=== PATIENT | male | born 1965 | race Caucasian/White ===

== ENCOUNTER 2016-08-16 14:27 | Emergency (ER) | payer OTHER ==
[~2016-08-16] VITALS: Ht 182.9 cm; Wt 86.0 kg
[~2016-08-16 14:27] MED LIST: IBUP-1050 PO; NAPR1CAP12 PO; TRAM-10 PO
[2016-08-16 14:47] VITALS: TEMP 37.1; Ht 182.9 cm; Wt 86.0 kg
[2016-08-16] MEDS ORDERED: ONDANSETRON INJ 2 MG/ML 2 ML VIAL IV STA (16:55)
[2016-08-16] MEDS ORDERED: SODIUM CHLORIDE 0.9% 1000ML 1,000 ML IV STA (16:55)
[2016-08-16] MEDS ORDERED: MoRPHine SULFATE 4 MG/ML 1 ML CARP\\VIAL IV STA (16:55)
[2016-08-16 17:12] LABS: BASO % 0.1 %; BASO ABS # 0.01 K/uL (0-0.2); COMPLETE YES; EOS % 2.2 %; HEMATOCRIT 47.5 % (42-52); IG% 0.1 %; LYMPH % 25.4 %; LYMPH ABS # 2.15 K/uL (1.2-3.4); MEAN CELL VOLUME 87.8 fL (80-100); MEAN CORPUSCULAR HGB CONC 36.4 g/dl (32-36); MEAN PLATELET VOLUME 9.8 fL (7.4-10.4); MONO % 5.7 %; NEUT % 66.5 %; PLATELET COUNT 234 K/uL (130-400); RED BLOOD COUNT 5.41 M/uL (4.7-6.1); WHITE BLOOD COUNT 8.48 K/uL (4.8-10.8)
[2016-08-16 17:25] LABS: URINE APPEARANCE CLEAR (CLEAR); URINE BILIRUBIN NEG (NEG); URINE COLOR DK YELLOW; URINE NITRITE NEG (NEG); URINE PH 5.5 (4.5-7.5); URINE SPECIFIC GRAVITY 1.029 (1.000-1.030); UROBILINOGEN NEG (NEG)
[2016-08-16 17:36] LABS: MANUAL MICROSCOPIC REQUIRED? NO; REVIEW REQ? NO
--- NOTE | 2016-08-16 17:44 | DIAGNOSTIC IMAGING REPORT ---
ABDOMEN AND PELVIS CT WITHOUT CONTRAST CT DOSE: 1114.30 mGy.cm HISTORY: Flank pain EVALUATE FLANK PAIN/HEMATURIA TECHNIQUE: Multiaxial CT images of the abdomen and pelvis were performed without the use of intravenous and oral contrast according to the standard department stone protocol. COMPARISON STUDY: 02/03/2016 FINDINGS: Lung bases are clear. Liver spleen and pancreas are unremarkable. The kidneys are demonstrate several punctate renal calcifications bilaterally. There is no evidence for renal hydronephrosis. Ureters are normal in course and caliber. There is no evidence for an obstructing urinary tract calculus. Bladder is midline. There are no contained calcifications. Prostate is unremarkable. Several central prostatic calcifications are present. No evidence for abscess collection or obstructive change. The appendix is normal. IMPRESSION: 1. Several punctate nonobstructing renal calcifications. 2. No evidence for an obstructing urinary tract calculus. 3. Study is otherwise normal. Electronically signed by: Mikhail Winter M.D. 08/16/2016 5:43 PM Dictated Date/Time: 08/16/2016 5:41 PM
[2016-08-16 17:56] LABS: BUN/CREATININE RATIO 13.8 (10-20); CREATININE 0.92 mg/dl (0.60-1.40); POTASSIUM 4.1 mmol/L (3.5-5.1)
[2016-08-16 18:23] VITALS: BP 129/83; PULSE 77; O2SAT 98
--- NOTE | 2016-08-17 02:04 | EMERGENCY ROOM VISIT NOTE ---
ED Visit Note First contact with patient: 16:37 Chief Complaint: "Kidney pain." History of Present Illness: Mr. Marinelli is a 51 year-old white male who ambulates into the ED complaining of bilateral flank pain with prominence on the left. Historically patient reports history of multiple kidney stones. Patient reports a gradual onset of bilateral flank pain that started 3 days ago. He reports initially started on the left but is gradually moved also to the left. He describes the pain as a sharp pain. He rates his discomfort 9/ 10. Pain is radiating around the abdomen into the bilateral lower quadrants. Worsens with palpation of the abdomen. He has not identified any alleviating factors related to the pain. He reports he's taken multiple [id number] medications without relief including ibuprofen, Aleve and Tylenol. Associated with his pain he reports she's been having night sweats and chills, vomiting and mild burning on urination. Patient denies skin eruptions, skin color changes, upper respiratory tract symptoms, shortness of breath, chest pain, nausea, vomiting, diarrhea, constipation, rectal bleeding, black/tarry stools, hematuria, bowel and bladder dysfunction, rectal/genital paresthesias, lower extremity weakness/numbness/ tingling. Review of Systems: As noted above in history of present illness. All body systems were reviewed and found to be negative as noted above. Past Medical History: As previously noted. Current Medications: Ibuprofen, naproxen. Allergies to Medications: Patient denies. Social History: Patient is currently employed; he feels safe in his home environment; he denies tobacco and alcohol use. Physical Examination: Vital Signs: Date Time Temp Pulse Resp B/P Pulse Ox O2 Delivery O2 Flow Rate FiO2 08/16/16 18:23 77 18 129/83 98 08/16/16 17:48 76 08/16/16 14:47 37.1 108 18 119/88 96 Room Air GENERAL: 51-year-old male in mild distress due to pain, nontoxic-appearing, afebrile and hemodynamically stable. NEUROLOGICAL: Awake, alert and oriented to person, place and time. Answering questions appropriately and following commands. Normal gait. Good hand eye coordination. SKIN: Warm, dry and pink. No soft tissue eruptions or trauma noted. HEENT: Atraumatic and normocephalic. PERRLA. Sclera white and conjunctiva pink. Oral cavity moist and pink. Pharynx is nonerythematous or edematous. Speech normal. No lymphadenopathy. Trachea midline. No jugular venous distention. BACK: No tenderness over the bony spine. No CVA tenderness. THORAX: Lungs sounds are clear to auscultation and equal bilaterally with symmetrical chest wall. No wheezing, rales or rhonchi. No crepitus, tenderness , subcutaneous air or deformities noted. HEART: Regular rate and rhythm. No gallops, rubs or murmurs are appreciated. ABDOMEN: Flat and soft with mild tenderness in the left upper quadrant, left mid quadrant and suprapubic areas. Positive bowel sounds in all quadrants. No guarding, rigidity or organomegaly. EXTREMITIES: Moves all extremities well on command and with purpose. All distal neurovascular statuses are intact and equal bilaterally. ED Course: Patient is assessed as noted above. Laboratory Testing: Test 08/16/16 16:46 Range/Units White Blood Count 8.48 4.8-10.8 K/uL Red Blood Count 5.41 4.7-6.1 M/uL Hemoglobin 17.3 14.0-18.0 g/dL Hematocrit 47.5 42-52 % Mean Corpuscular Volume 87.8 80-100 fL Mean Corpuscular Hemoglobin 32.0 25-34 pg Mean Corpuscular Hemoglobin Concent 36.4 32-36 g/dl Platelet Count 234 130-400 K/uL Mean Platelet Volume 9.8 7.4-10.4 fL Neutrophils (%) (Auto) 66.5 % Lymphocytes (%) (Auto) 25.4 % Monocytes (%) (Auto) 5.7 % Eosinophils (%) (Auto) 2.2 % Basophils (%) (Auto) 0.1 % Neutrophils # (Auto) 5.64 1.4-6.5 K/uL Lymphocytes # (Auto) 2.15 1.2-3.4 K/uL Monocytes # (Auto) 0.48 0.11-0.59 K/uL Eosinophils # (Auto) 0.19 0-0.5 K/uL Basophils # (Auto) 0.01 0-0.2 K/uL RDW Standard Deviation 40.5 36.4-46.3 fL RDW Coefficient of Variation 12.7 11.5-14.5 % Immature Granulocyte % (Auto) 0.1 % Immature Granulocyte # (Auto) 0.01 0.00-0.02 K/uL Urine Color DK YELLOW Urine Appearance CLEAR CLEAR Urine pH 5.5 4.5-7.5 Urine Specific [place] 1.029 1.000-1.030 Urine Protein NEG NEG Urine Glucose (UA) NEG NEG Urine Ketones NEG NEG Urine Occult Blood NEG NEG Urine Nitrite NEG NEG Urine Bilirubin NEG NEG Urine Urobilinogen NEG NEG Urine Leukocyte Esterase NEG NEG Sodium Level 141 136-145 mmol/L Potassium Level 4.1 3.5-5.1 mmol/L Chloride Level 106 98-107 mmol/L Carbon Dioxide Level 26 21-32 mmol/L Anion Gap 9.0 3-11 mmol/L Blood Urea Nitrogen 13 7-18 mg/dl Creatinine 0.92 0.60-1.40 mg/dl Est Creatinine Clear Calc Drug Dose 105.5 ml/min Estimated GFR () 112.0 Estimated GFR (Non- 96.6 BUN/Creatinine Ratio 13.8 10-20 Random Glucose 101 70-99 mg/dl Calcium Level 9.0 8.5-10.1 mg/dl Total Bilirubin 0.5 0.2-1 mg/dl Direct Bilirubin 0.2 0-0.2 mg/dl Aspartate Amino Transf (AST/SGOT) 11 15-37 U/L Alanine Aminotransferase (ALT/SGPT) 20 12-78 U/L Alkaline Phosphatase 95 45-117 U/L Total Protein 7.7 6.4-8.2 gm/dl Albumin 4.2 3.4-5.0 gm/dl Lipase 85 73-393 U/L Noncontrast Abdominal/Pelvic CT: Several punctate nonobstructing renal calcifications were noted, no evidence of obstructing urinary tract calculus and mild fecal retention. Patient was hydrated with normal saline and he received 4 mg of morphine IV for pain and 4 mg of Zofran IV for nausea. Patient was reassessed multiple times during his stay in the emergency department. Patient's case was reviewed with Dr. Eaton; we agreed on diagnostic approach , treatment, disposition and plan. Clinical Impression: Bilateral flank pain. Fecal retention. Decision-Making: Initially my differential diagnosis I considered ureter calculus, pyelonephritis, retroperitoneal bleed, aortic aneurysm, bowel obstruction and other causes. Disposition: Patient discharged home in stable condition; prior to departure he was reassessed and subjectively reported he was feeling better and rated his discomfort 2/10. Plan: Patient was encouraged to alternate ibuprofen and acetaminophen every 3 hours as needed for pain. Patient was encouraged to stay well hydrated. Patient was encouraged to use [id number] stool softeners like Colace and 1 dose of MiraLAX a day for 7 days. Patient was encouraged to follow-up with family physician for recheck. Patient was encouraged return the ED for worsening pain, fevers, bloody stools or any new/concerning symptoms.
== END 2016-08-16 18:25 | disposition home or self-care (01) ==
LOC: C.EDB 14:27 → C.EDA 18:25
DX: R10.9 Unspecified abdominal pain (principal); K59.00 Constipation, unspecified

== ENCOUNTER 2016-08-25 07:43 | Emergency (ER) | payer OTHER ==
[~2016-08-25] VITALS: Ht 182.9 cm; Wt 84.7 kg
[~2016-08-25 07:43] MED LIST changes: -TRAM-10 PO
[2016-08-25 07:47] VITALS: TEMP 36.8; Ht 182.9 cm; Wt 84.7 kg
[2016-08-25] MEDS ORDERED: SODIUM CHLORIDE 0.9% 1000ML 1,000 ML IV STA (08:02)
[2016-08-25] MEDS ORDERED: MoRPHine SULFATE 4 MG/ML 1 ML CARP\\VIAL IV STA ×2 (08:02→10:00)
[2016-08-25] MEDS ORDERED: ONDANSETRON INJ 2 MG/ML 2 ML VIAL IV STA (08:02)
[2016-08-25] MEDS ORDERED: KETOROLAC TROMETHAMINE 30 MG/ML VIAL IV STA (08:02)
[2016-08-25 08:27] LABS: BASO % 0.3 %; BASO ABS # 0.02 K/uL (0-0.2); COMPLETE YES; EOS % 3.6 %; HEMATOCRIT 47.5 % (42-52); IG% 0.2 %; LYMPH % 19.1 %; LYMPH ABS # 1.26 K/uL (1.2-3.4); MEAN CELL VOLUME 86.7 fL (80-100); MEAN CORPUSCULAR HEMOGLOBIN 31.8 pg (25-34); MEAN CORPUSCULAR HGB CONC 36.6 g/dl (32-36); MEAN PLATELET VOLUME 9.5 fL (7.4-10.4); MONO % 5.6 %; NEUT % 71.2 %; PLATELET COUNT 208 K/uL (130-400); RED BLOOD COUNT 5.48 M/uL (4.7-6.1)
[2016-08-25 08:44] LABS: URINE APPEARANCE CLEAR (CLEAR); URINE BILIRUBIN NEG (NEG); URINE COLOR DK YELLOW; URINE NITRITE NEG (NEG); URINE SPECIFIC GRAVITY 1.025 (1.000-1.030); UROBILINOGEN NEG (NEG)
[2016-08-25 08:45] LABS: BUN/CREATININE RATIO 15.2 (10-20); CALCIUM 8.8 mg/dl (8.5-10.1); CREATININE 0.93 mg/dl (0.60-1.40)
[2016-08-25 08:48] LABS: ALB/GLOB RATIO 1.3 (0.9-2)
[2016-08-25 08:51] LABS: MANUAL MICROSCOPIC REQUIRED? NO; REVIEW REQ? NO
--- NOTE | 2016-08-25 09:34 | DIAGNOSTIC IMAGING REPORT ---
ABDOMEN 2VIEW W/PA CHEST RTN CLINICAL HISTORY: Left lower quadrant abdominal pain. COMPARISON STUDY: KUB dated 11/01/2015 FINDINGS: The erect chest reveals no free air. There is no focal pulmonary consolidation. Erect and supine views the abdomen reveal a minimally prominent central small bowel loop. There is gas present within colon. There are no transition zones indicate a high-grade bowel obstruction. IMPRESSION: Nonspecific bowel gas pattern. No conventional radiographic evidence of bowel obstruction. No evidence of free air. Electronically signed by: Ozzie Castorean M.D. 08/25/2016 9:33 AM Dictated Date/Time: 08/25/2016 9:32 AM
[2016-08-25 10:22] VITALS: BP 123/79; PULSE 70; O2SAT 97
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
== END 2016-08-25 10:30 | disposition home or self-care (01) ==
LOC: C.EDB 07:44
DX: M54.5 Low back pain (principal); R10.30 Lower abdominal pain, unspecified; I10 Essential (primary) hypertension; Z87.440 Personal history of urinary (tract) infections; Z87.891 Personal history of nicotine dependence; Z83.3 Family history of diabetes mellitus; Z82.49 Family history of ischemic heart disease and other diseases of the circulatory system

== ENCOUNTER 2016-09-23 07:24 | Emergency (ER) | payer OTHER ==
[~2016-09-23] VITALS: Ht 182.9 cm; Wt 82.8 kg
[2016-09-23 07:28] VITALS: TEMP 36.9; Ht 182.9 cm; Wt 82.8 kg
--- NOTE | 2016-09-23 08:12 | DIAGNOSTIC IMAGING REPORT ---
LEFT ELBOW MIN 3 VIEWS ROUTINE CLINICAL HISTORY: Left elbow pain COMPARISON: None. DISCUSSION: No acute fractures are visualized. There are moderate degenerative changes present. There is radial head spurring. There is coronoid process spurring. There is an olecranon spur. There is a 4 mm radiopaque foreign body within the posterior medial soft tissues of the upper forearm. IMPRESSION: 1. No acute fractures 2. Degenerative change including radial head spurring, coronoid process spurring and olecranon spurring. 3. 4 mm radiopaque foreign body within the posterior medial soft tissues at the upper forearm Electronically signed by: Ozzie Castorena M.D. 09/23/2016 8:11 AM Dictated Date/Time: 09/23/2016 8:08 AM
[2016-09-23] MEDS ORDERED: TRAMADOL HCL 50 MG TAB PO STA (08:19)
[2016-09-23] MEDS ORDERED: TRAM-10 PO (08:29)
[2016-09-23 08:41] VITALS: BP 156/106; PULSE 71; O2SAT 98
--- NOTE | 2016-09-23 08:46 | EMERGENCY ROOM VISIT NOTE ---
ED Visit Note First contact with patient: 07:33 Chief Complaint: Left elbow pain. History of Present Illness: Mr. Marinelli is a 51-year-old white male who ambulates into the ED complaining of left elbow pain. Patient reports he has been having ongoing left elbow pain for the last 2 days. 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 He was able to continue working. Yesterday he reports he went to see his PCP because of his pain and reports no x -rays or procedures were done. He was encouraged to come to the emergency department for worsening pain. Currently he is complaining of a sharp and throbbing pain predominantly over the posterior and medial aspect of the elbow. He rates his discomfort 10/10. He denies true radiation of the pain but does report intermittently he has shooting pain up his arm to the level of the elbow and down his arm to the level of the wrist. His pain worsens with palpation of the elbow predominantly over the posterior and medial aspect of the elbow but I was also able to palpate pain over the lateral aspect of the elbow, flexion beyond 90, pronation , supination and extension beyond the 150. He reports he has been taking Aleve , tramadol and ibuprofen without relief of his discomfort. Associated with his pain he has noted a small soft tissue injury over the medial aspect and some swelling over the olecranon process. He denies neck pain, shoulder pain, arm weakness/numbness/tingling. Additionally he denies any previous significant injuries or surgeries to the left elbow. Review of Systems: As noted above in history of present illness. Past Medical History: Unspecified urinary problems and kidney stones. Current Medications: Patient denies. Allergies to Medications: Patient denies. Social History: Patient is currently employed; he feels safe in his home environment; he admits to tobacco use. Physical Examination: Vital Signs: GENERAL: 51-year-old male in mild to moderate distress due to pain, nontoxic- appearing, afebrile and hemodynamically stable. NEUROLOGICAL: Awake, alert and oriented to person, place and time. Answering questions appropriately and following commands. SKIN: Warm, dry and pink. Left Elbow: Subcentimeter superficial soft tissue injury over the lateral aspect of the elbow without erythema, edema, red streaking or pus like drainage. LEFT UPPER EXTREMITY: No gross bony deformity. No tenderness throughout the shoulder, upper arm, wrist or hand. Moderate to tenderness throughout the elbow ; difficult to assess because when he is touched he jumps in pain. Decreased range of motion in flexion and extension of the elbow and pronation and supination of the forearm. Full range of motion in flexion and extension and radial and ulnar deviation of the wrist and flexion and extension of the fingers. Throughout the hand the skin was warm and pink and capillary refill was brisk. ED Course: Patient is assessed as noted above. Left Elbow X-Rays: Were read by myself and the radiologist and reviewed with Dr. Gtz; shows no acute fractures or dislocations. No elevation of the fat pads. Moderate arthritic changes were noted throughout the elbow. 4 mm superficial foreign body was noted. Patient was given 50 mg of Ultram by mouth for pain. Patient was placed in a sling. Patient's case was reviewed with Dr. Gtz; we agreed on diagnostic approach, treatment, disposition and plan. Patient was educated about today's findings and instructed on his treatment plan ; he verbalizes understanding and agreement with this plan. Clinical Impression: Left elbow pain. Left elbow foreign-body. Work related injury. Disposition: Patient discharged home in stable condition; prior to departure he was reassessed and subjectively reported he was feeling the same. Plan: Comfort measures including rest, sling use, ice and a prescription for Ultram were discussed with the patient. Patient was encouraged to follow-up with Workmen's Compensation in 3 days for recheck, referral to orthopedics and/or return to work instructions. Patient was encouraged return the ED for worsening symptoms, any signs of infection or any new/concerning symptoms.
--- NOTE | 2016-09-23 08:53 | EMERGENCY ROOM VISIT NOTE ---
ED Visit Note First contact with patient: 07:33 The patient was seen and examined with Stevie Hunter PA-C. I agree with the history, physical and findings. Please see the note for disposition and details. I did evaluate the patient. There is no edema or erythema to suggest infection. The patient was counseled on the foreign body. There is no obvious significant fresh wound to explore for possible foreign body removal and there is likelihood cause more issues hunting for this. I did discuss this with the patient. I did review signs of infection. The patient noted moderate pain. He has had issues in the past with narcotics here and the patient was treated with tramadol. The patient expressed some concern about his pain and I asked her follow-up closely with orthopedics. The patient states he was going to contact orthopedics right after Emergency Room departure. If he worsens in any way he will be back to the Emergency Room for reevaluation.
== END 2016-09-23 08:42 | disposition home or self-care (01) ==
LOC: C.EDB 07:25
DX: S50.352A Superficial foreign body of left elbow, initial encounter (principal); W22.09XA Striking against other stationary object, initial encounter; Y99.0 Civilian activity done for income or pay; Y93.H3 Activity, building and construction; Z87.442 Personal history of urinary calculi; F17.200 Nicotine dependence, unspecified, uncomplicated

== ENCOUNTER → 2017-11-28 | Outpatient (CLI) | payer OTHER ==
--- NOTE | 2017-11-28 09:59 | DIAGNOSTIC IMAGING REPORT ---
L-SPINE MIN 4 VIEWS ROUTINE HISTORY: Pain LOW BACK PAIN COMPARISON: 02/05/2015 FINDINGS: There is no fracture. No subluxation. Minimal degenerative intervertebral this change L3-L4 and L4-L5 stable from the prior exam. IMPRESSION: Minimal degenerative change. No acute process. The above report was generated using voice recognition software. It may contain grammatical, syntax or spelling errors. Electronically signed by: Mikhail Winter M.D. 11/28/2017 9:57 AM Dictated Date/Time: 11/28/2017 9:57 AM
--- NOTE | 2017-11-28 10:03 | DIAGNOSTIC IMAGING REPORT ---
L ELBOW MIN 3 VIEWS ROUTINE CLINICAL HISTORY: PAIN pain. COMPARISON: 09/23/2016 DISCUSSION: Mild degenerative change. Proximal ulnar bone spur. No evidence for fracture or dislocation. No significant joint effusion. There is no evidence for soft tissue swelling. IMPRESSION: Mild degenerative change. Unchanged proximal ulnar bone spur. No change from the prior study. Unchanged 4 mm metallic foreign body which has been described previously The above report was generated using voice recognition software. It may contain grammatical, syntax or spelling errors. Electronically signed by: Mikhail Winter M.D. 11/28/2017 10:01 AM Dictated Date/Time: 11/28/2017 9:59 AM
--- NOTE | 2017-11-28 10:18 | DIAGNOSTIC IMAGING REPORT ---
KUB CLINICAL HISTORY: BACK PAIN pain COMPARISON STUDY: No previous studies for comparison. FINDINGS: The soft tissues, psoas shadows, renal outlines and intestinal gas pattern appear normal. There is no evidence for bowel obstruction. No abnormal abdominal calcifications are seen. IMPRESSION: Normal study. The above report was generated using voice recognition software. It may contain grammatical, syntax or spelling errors. Electronically signed by: Mikhail Winter M.D. 11/28/2017 10:16 AM Dictated Date/Time: 11/28/2017 10:16 AM
== END | disposition home or self-care (01) ==
LOC: C.RAD 09:31 → EDSTATUS 01-05 12:41
PROVIDERS: ATTEND Internal Medicine
DX: M54.5 Low back pain (principal); M25.521 Pain in right elbow; M77.8 Other enthesopathies, not elsewhere classified

== ENCOUNTER 2021-10-13 22:03 | Inpatient (IN) ==
[2021-10-13] MEDS ORDERED: ONDANSETRON INJ 2 MG/ML 2 ML VIAL IV STA (22:12)
[2021-10-13] MEDS ORDERED: DICYCLOMINE HCL 10 MG/ML 2 ML AMP/VIAL IM ONE (22:12)
[2021-10-13] MEDS ORDERED: SODIUM CHLORIDE 0.9% 1000ML 1,000 ML IV SCH (22:15)
--- NOTE | 2021-10-13 22:16 | Emergency Department Note ---
History of Present Illness General Chief complaint: Dizziness Stated complaint: DIZZINESS, UNBALANCED, CONSTIPATION Time Seen by Provider: 10/13/21 22:09 History of Present Illness Maximum Pain Intensity: 10 This 56-year-old presents to the ER complaining of nausea abdominal pain and no bowel movement today Location: Abdomen Quality: Painful Severity: Moderate Duration: Today Timing: Today Context: Patient was concerned and came in Modifying factors: better with rest; worse with activity Patient denies chest pain, dyspnea, dizziness, weakness, diarrhea, urinary sympt oms, fever, chills. Patient states he is healthy with no active medical problems. He does smoke. No alcohol or drug use. Home Medications Medication Instructions Recorded Confirmed Type acetaminophen 500 mg tablet 500 mg PO DIRECTED PRN 10/13/21 10/13/21 History (Tylenol Extra Strength) ibuprofen 200 mg tablet 600 - 800 mg PO DIRECTED PRN 10/13/21 10/13/21 History Allergies Allergy/AdvReac Type Severity Reaction Status Date / Time No Known Allergies Allergy Verified 10/13/21 22:47 Past Med/Surg History Medical History (Updated 10/14/21 @ 00:41 by Ina Samano PA-C) HTN (hypertension) Hypertension Inguinal hernia Right kidney stone Surgical History (Updated 10/13/21 @ 22:14 by Ina Samano PA-C) H/O hernia repair Social History Smoking Status: Current every day smoker Preferred Language: Kiswahili Feels Safe at Home: Yes Review of Systems A total of 10 systems reviewed and were otherwise negative Physical Exam Vital Signs Vital Signs - 24 hr 10/13/21 22:04 Temperature 36 C L Temperature Source Temporal Artery Scan Pulse Rate 81 Pulse Rhythm Regular Pulse Strength Normal Respiratory Rate 18 Respiratory Effort / Characteristics Non-Labored Spontaneous Respiratory Depth Normal Blood Pressure 161/111 H Blood Pressure Mean 127 Blood Pressure Position Sitting Pulse Oximetry 98 Oxygen Delivery Method Room Air Sepsis Recent Fever Within 48 Hours No Sepsis New/Unexplained Change in Mental Status N/A Sepsis Action Taken by Nursing No Action Required VITALS: Vitals are noted on the nurse's note and reviewed by myself. Vital signs hypertensive. GENERAL: White male who appears in pain, in no acute distress, nondiaphoretic, well-developed well-nourished. SKIN: The skin was without rashes, erythema, edema, or bruising. There is no tenting of the skin. Capillary reflex less than 2 seconds. HEAD: Normocephalic atraumatic. EARS: External auditory canals clear, EYES: Pupils equal round and reactive to light and accommodation. Conjunctivae without injection, sclerae without icterus. Extraocular movements intact. NOSE: Patent, turbinates without inflammation or discharge. MOUTH: Mucous membranes moist. Pharynx without erythema or exudate. Uvula midline. Airway patent. Tongue does not deviate. NECK: Supple without nuchal rigidity. No lymphadenopathy. No thyromegaly. Cervical spine is nontender. No JVD. HEART: Regular rate and rhythm LUNGS: Clear to auscultation bilaterally without wheezes, rales or rhonchi. No retractions or accessory muscle use. ABDOMEN: Positive bowel sounds x 4. Normal tympanic percussion. Soft, diffuse tenderness, without masses or organomegaly. Constantino sign negative. No guarding or rebound tenderness. No CVA tenderness MUSCULOSKELETAL: No muscle atrophy, erythema, or edema noted. NEURO: Patient was alert and oriented to person place and time. Normal sensation to light and sharp touch. No focal neurological deficits. Course Administered Medications Discontinued Medications Dicyclomine HCl (Dicyclomine Hcl 10 Mg/Ml 2 Ml Amp/Vial) 20 mg IM NOW ONE Stop: 10/13/21 22:13 Last Admin: 10/13/21 22:29 Dose: 20 mg Documented by: [id number] Sodium Chloride (Nss 1000ml) 1,000 mls @ 999 mls/hr IV .Q1H1M RUSTAM Stop: 10/13/21 23:15 Last Infusion: 10/13/21 23:35 Dose: 0 mls/hr Documented by: [id number] Admin: 10/13/21 22:29 Dose: 999 mls/hr Documented by: [id number] Acetaminophen (Ofirmev) 1,000 mg in 100 mls @ 400 mls/hr IV NOW STA Stop: 10/14/21 00:23 Last Infusion: 10/14/21 00:36 Dose: 0 mls/hr Documented by: [id number] Admin: 10/14/21 00:16 Dose: 400 mls/hr Documented by: [id number] Ioversol (Optiray 320 100ml) 92 ml IV ONCE ONE Stop: 05/24/22 23:19 Last Admin: 10/13/21 23:26 Dose: 92 ml Documented by: [id number] Ondansetron HCl (Ondansetron Inj 2 Mg/Ml 2 Ml Vial) 4 mg IV NOW STA Stop: 10/13/21 22:13 Last Admin: 10/13/21 22:29 Dose: 4 mg Documented by: [id number] Medical Decision Making Medical Records Attestation: I reviewed the patient's medical records. Home Medications Current Medication List: was personally reviewed by me Laboratory Data Attestation: I reviewed the patient's lab results. Result diagrams: 10/13/21 22:19 10/13/21 22:19 Lab Results 10/13/21 10/13/21 10/13/21 Range/Units 22:19 22:19 23:15 WBC 9.73 (4.8-10.8) K/uL RBC 4.99 (4.7-6.1) M/uL Hgb 15.5 (14.0-18.0) g/dL Hct 44.0 (42-52) % MCV 88.2 (80-100) fL MCH 31.1 (25-34) pg MCHC 35.2 (32-36) g/dL RDW Std Deviation 40.9 (36.4-46.3) fL RDW Coeff of Sarahi 12.7 (11.5-14.5) % Plt Count 267 (130-400) K/uL MPV 9.2 (7.4-10.4) fL Immature Gran % (Auto) 0.1 % Neut % (Auto) 80.0 % Lymph % (Auto) 11.6 % [place] % (Auto) 6.6 % Eos % (Auto) 1.5 % Baso % (Auto) 0.2 % Neut # (Auto) 7.78 H (1.4-6.5) K/uL Lymph # (Auto) 1.13 L (1.2-3.4) K/uL [place] # (Auto) 0.64 H (0.11-0.59) K/uL Eos # (Auto) 0.15 (0-0.5) K/uL Baso # (Auto) 0.02 (0-0.2) K/uL Immature Gran # (Auto) 0.01 (0.00-0.02) K/uL Sodium 138 (136-145) mmol/L Potassium 3.6 (3.5-5.1) mmol/L Chloride 103 (98-107) mmol/L Carbon Dioxide 28 (21-32) mmol/L Anion Gap 7 (3-11) BUN 11 (6-23) mg/dl Creatinine 0.84 (0.6-1.4) mg/dl Est Cr Clr Drug Dosing 109.1 ml/min Est GFR ( Amer) 114.2 ml/min Est GFR (Non-Af Amer) 98.6 ml/min BUN/Creatinine Ratio 13.1 (10-20) Glucose 111 H (70-99(Fasting)) mg/dl Calcium 9.4 (8.5-10.1) mg/dl Total Bilirubin 0.7 (0.2-1.0) mg/dl AST 17 (13-39) U/L ALT 14 (7-52) U/L Alkaline Phosphatase 96 (34-104) U/L Troponin I High Sens 4.2 (0-20) pg/ml Total Protein 7.4 (6.0-8.3) gm/dl Albumin 4.6 (3.4-5.0) gm/dl Globulin 2.8 (2.5-4.0) gm/dl Albumin/Globulin Ratio 1.6 (0.9-2) Lipase 6 L (11-82) U/L Urine Color Yellow Urine Appearance Clear (Clear) Urine pH 8.5 H (4.5-7.5) Ur Specific [place] 1.011 (1.000-1.030) Urine Protein Negative (Negative) Urine Glucose (UA) Negative (Negative) Urine Ketones 1+ H (Negative) Urine Blood 2+ H (Negative) Urine Nitrite Negative (Negative) Urine Bilirubin Negative (Negative) Urine Urobilinogen Negative (Negative) Ur Leukocyte Esterase Negative (Negative) Urine WBC (Auto) 1-5 (0-5) /hpf Urine RBC (Auto) >30 H (0-4) /hpf U Hyaline Cast (Auto) 1-5 (0-5) /lpf U Epithel Cells (Auto) 5-10 H (0-5) /lpf Urine Bacteria (Auto) Negative (Negative) Imaging Data Attestation: I personally reviewed and interpreted this imaging study as follows: MDM Narrative Prior records/ancillary studies reviewed. Triage Nursing notes reviewed. Additional history obtained from family. The patient's history was concerning for abdominal pain. Differential diagnosis: Etiologies such as appendicitis, diverticulitis, PUD, biliary pathology, UTI, pancreatitis, obstruction, mesenteric ischemia, aortic pathology, infections, inflammatory bowel disease, renal colic, as well as others were entertained. Physical examination findings: As above. ER treatment provided: An order was placed for continuous cardiac monitoring. The monitor shows a rate of 60-100 with a sinus rhythm. Fluids Zofran Bentyl, Flomax, Tylenol, Toradol On reassessment the patient felt better. Diagnostics interpreted by me: ECG: Ordered for upper abdominal pain EKG: Normal sinus, incomplete right bundle, no acute ST-T wave changes, rate of 75. Impression incomplete right bundle branch block interpreted by myself I think arrhythmia is unlikely. EKG shows no interval abnormalities such as QT prolongation or WPW. There are no findings to suggest Brugada syndrome. Cardiac monitoring in the emergency department reveals no tachycardic or bradycardic dysrhythmia. Hypertrophic cardiomyopathy was considered but there are no clear historical elements pointing toward this. EKG is not suggestive. The QRS voltage is not extremely large and there are no suggestive Q waves. The labs revealed no worrisome leukocytosis, hematuria without signs of infection Imaging studies: Preliminary Findings Only See Final Report For Complete Findings CT ABDOMEN & PELVIS With Contrast: Comparison: 08/16/2016. Bilateral posterior dependent atelectasis versus residual subpleural pneumonitis. Remainder of the lung bases are clear. Normal heart. Normal liver, gallbladder and biliary system. Normal spleen, pancreas and bilateral adrenal glands. Several tiny stones within the right kidney largest measuring 2 mm. Right perinephric stranding with moderate to severe hydronephrosis due to a large stone seen at the right UP junction measuring approximately 14 mm. Small low-attenuation lesions within the left kidney, too small to characterize and largest averaging approximately 10 mm, statistically consistent with small cysts. Atherosclerotic disease of aorta with no aneurysm. Normal stomach and small bowel and colon. Normal appendix. Normal urinary bladder. Unremarkable prostate gland. Degenerative disease of the spine. Radiologist: Lynn Angulo MD Consultation: A consultation was placed with the hospitalist. The case was discussed and diag nostics were reviewed. The patient was evaluated in the ER for further treatment. Exam and history seem consistent with renal colic on the right side. Patient was still moderate amount of pain. Medicine is consulted. He will be evaluated for admission. Stone was quite large. He had moderate to severe hydro. By the evaluation outlined above emergent etiologies such as appendicitis, divert iculitis, PUD, biliary pathology, UTI, pancreatitis, obstruction, mesenteric ischemia, aortic pathology, infections, inflammatory bowel disease, as well as others were deemed relatively unlikely. The pt informed about the findings as listed above. All questions were answered and pleased with the treatment. The chart was completed utilizing [employer] Speech voice recognition software. Grammatical errors, random word insertions, pronoun errors, and incomplete sentences are an occassional consequence of this system due to software limitations, ambient noise, and hardware issues. Any formal questions or concerns about the content, text, or information contained within the body of this dictation should be directly addressed to the physician aquatics assistant department head for clarification. Impression & Plan Renal colic on right side, Ureterolithiasis Discharge Plan Visit Data Chief Complaint: Dizziness Stated Complaint: DIZZINESS, UNBALANCED, CONSTIPATION ED Provider: Arya Mckeon ED Midlevel Provider: Ina Samano Discharge Problem: Renal colic on right side, Ureterolithiasis Patient Disposition: Admitted As Inpatient Condition: Good Forms Stand Alone Forms: [place] [place] Prescriptions Prescriptions: No Action acetaminophen [Tylenol Extra Strength] 500 mg Tablet 500 mg PO DIRECTED PRN (Reason: Pain) RF: 0 ibuprofen 200 mg Tablet 600 - 800 mg PO DIRECTED PRN (Reason: Pain) RF: 0 Referrals Referrals: PCP,NO [Primary Care Provider] -
[2021-10-13 22:30] LABS: Basophils # (auto) 0.02 K/uL (0-0.2); Basophils % (auto) 0.2 %; Eosinophils # (auto) 0.15 K/uL (0-0.5); Eosinophils % (auto) 1.5 %; Hemoglobin 15.5 g/dL (14.0-18.0); Immature Granulocytes # (auto) 0.01 K/uL (0.00-0.02); Immature Granulocytes % (auto) 0.1 %; Lymphocytes # (auto) 1.13 K/uL (1.2-3.4); Lymphocytes % (auto) 11.6 %; Mean Corpuscular Hemoglobin 31.1 pg (25-34); Mean Corpuscular Hgb Conc 35.2 g/dL (32-36); Mean Corpuscular Volume 88.2 fL (80-100); Mean Platelet Volume 9.2 fL (7.4-10.4); Monocytes # (auto) 0.64 K/uL (0.11-0.59); Monocytes % (auto) 6.6 %; Neutrophils # (auto) 7.78 K/uL (1.4-6.5); Platelet Count 267 K/uL (130-400); RDW Coefficient of Variation 12.7 % (11.5-14.5); RDW Standard Deviation 40.9 fL (36.4-46.3); Red Blood Count 4.99 M/uL (4.7-6.1); White Blood Count 9.73 K/uL (4.8-10.8)
[2021-10-13 22:56] LABS: Albumin Globulin Ratio 1.6 (0.9-2); Albumin Level 4.6 gm/dl (3.4-5.0); BUN Creatinine Ratio 13.1 (10-20); Bilirubin,Total 0.7 mg/dl (0.2-1.0); Calcium 9.4 mg/dl (8.5-10.1); Creatinine Clr Calc Pharmacy 109.1 ml/min; Est GFR (African American) 114.2 ml/min; Est GFR (Non-African American) 98.6 ml/min; Globulin 2.8 gm/dl (2.5-4.0); Potassium 3.6 mmol/L (3.5-5.1); Total Protein 7.4 gm/dl (6.0-8.3)
[2021-10-13 22:58] LABS: Troponin I High Sensitivity 4.2 pg/ml (0-20)
[2021-10-13] MEDS ORDERED: OPTIRAY 320 100ml IV ONE (23:18)
[2021-10-13 23:34] LABS: Appearance Urine Clear (Clear); Bacteria Urine Automated Negative (Negative); Bilirubin Urine Negative (Negative); Blood Urine 2+ (Negative); Color Urine Yellow; Glucose Urine UA Negative (Negative); Ketones Urine 1+ (Negative); Leukocyte Esterase Urine Negative (Negative); Nitrite Urine Negative (Negative); Protein Urine Negative (Negative); RBC Urine Automated >30 /hpf (0-4); Specific Gravity Urine 1.011 (1.000-1.030); Urobilinogen Urine Negative (Negative); pH Urine 8.5 (4.5-7.5)
[2021-10-14] MEDS ORDERED: ACETAMINOPHEN 1,000 MG/100 ML VIAL IV STA (00:09)
[2021-10-14] MEDS ORDERED: TAMSULOSIN HCL 0.4 MG CAP PO ONE (00:33)
[2021-10-14] MEDS ORDERED: KETOROLAC TROMETHAMINE 15 MG/ML VIAL IV STA (00:34)
--- NOTE | 2021-10-14 00:59 | History & Physical Report ---
Date of Service October 14, 2021 Assessment & Plan (1) Obstructive uropathy: Plan: Secondary to recurrent kidney stone No sepsis for now Situational hypertension chronic back pain, at baseline BPH as per records Hyperglycemia rule out DM ongoing tobacco abuse GMF Analgesia, IVF Strain urine Urology consult Re: Renal colic/obstructive uropathy N.p.o. until patient seen by urology in anticipation of procedure. Check hemoglobin A1c Nicotine patch as needed DVT prophylaxis. Lovenox subcu Full code Patient's requesting updates from providers. Ms. Maximilian Marinelli , contact #[phone]. Text document was generated using S[employer] voice recognition software. It may contain grammatical or spelling errors. Kindly contact undersigned for clarification of any documentation item in question. History of Present Illness Chief Complaint: Abdominal pain Primary Care Provider: Dr. Collado History obtained from patient, family, and records. Medical history significant for urolithiasis, chronic back pain, BPH, ongoing tobacco abuse. Last confinement July 2015 for renal colic secondary to 7 mm distal ureteral kidney stone. Patient underwent outpatient ESWL. 1 day history of achy lower abdominal pain with nausea, constipation symptoms. Symptoms somewhat different from kidney stone attack. No hematuria, no fever, no chills, no chest pain, no SOB. Patient brought by to the ER for evaluation. 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 Allergies Allergy/AdvReac Type Severity Reaction Status Date / Time No Known Allergies Allergy Verified 10/13/21 22:47 Home Medications Medication Instructions Recorded Confirmed Type acetaminophen 500 mg tablet 500 mg PO DIRECTED PRN 10/13/21 10/13/21 History (Tylenol Extra Strength) ibuprofen 200 mg tablet 600 - 800 mg PO DIRECTED PRN 10/13/21 10/13/21 History Past Med/Surg History Medical History HTN (hypertension) Hypertension Inguinal hernia Right kidney stone Surgical History H/O hernia repair Social History Smoking Status: Current every day smoker Hx Alcohol Use: No Hx Substance Use: Yes Preferred Language: Belgian Current Living Situation: Family and Significant Other Feels Safe at Home: Yes Review of Systems Review of Systems: As per HPI, all other systems reviewed and negative Physical Exam Physical Exam: GENERAL: Comfortable, looks older than stated age, no respiratory distress SKIN: Normal color, warm HEENT: [place] palpebral conjunctivae, no ptosis, dry buccal mucosa NECK : Supple, no tenderness CHEST : Decreased breath sounds, no tenderness HEART : RRR, no obvious murmurs ABDOMEN: Some distention, nontender EXTREMITIES : No LE swelling/tenderness, no other conspicuous deformities noted NEUROLOGIC : Coherent, no facial asymmetry, no other gross focality Results & Data Results & Data ([facility]) Vital Signs (Past 12 Hours) Vital Signs Temp Pulse Resp BP Pulse Ox 10/14/21 00:30 81 16 155/105 H 10/14/21 00:15 78 24 96 10/14/21 00:01 86 15 10/14/21 00:00 76 23 10/13/21 23:45 73 18 10/13/21 23:35 69 22 132/92 98 10/13/21 23:32 97 10/13/21 22:04 36 C L 81 18 161/111 H 98 Laboratory Results Laboratory Results WBC 9.73 K/uL (4.8-10.8) 10/13/21 22:19 RBC 4.99 M/uL (4.7-6.1) 10/13/21 22:19 Hgb 15.5 g/dL (14.0-18.0) 10/13/21 22:19 Hct 44.0 % (42-52) 10/13/21 22:19 MCV 88.2 fL (80-100) 10/13/21 22:19 MCH 31.1 pg (25-34) 10/13/21 22:19 MCHC 35.2 g/dL (32-36) 10/13/21 22:19 RDW Std Deviation 40.9 fL (36.4-46.3) 10/13/21 22:19 RDW Coeff of Sarahi 12.7 % (11.5-14.5) 10/13/21 22:19 Plt Count 267 K/uL (130-400) 10/13/21 22:19 MPV 9.2 fL (7.4-10.4) 10/13/21 22:19 Immature Gran % (Auto) 0.1 % 10/13/21 22:19 Neut % (Auto) 80.0 % 10/13/21 22:19 Lymph % (Auto) 11.6 % 10/13/21 22:19 [place] % (Auto) 6.6 % 10/13/21 22:19 Eos % (Auto) 1.5 % 10/13/21 22:19 Baso % (Auto) 0.2 % 10/13/21 22:19 Neut # (Auto) 7.78 K/uL (1.4-6.5) H 10/13/21 22:19 Lymph # (Auto) 1.13 K/uL (1.2-3.4) L 10/13/21 22:19 [place] # (Auto) 0.64 K/uL (0.11-0.59) H 10/13/21 22:19 Eos # (Auto) 0.15 K/uL (0-0.5) 10/13/21 22:19 Baso # (Auto) 0.02 K/uL (0-0.2) 10/13/21 22:19 Immature Gran # (Auto) 0.01 K/uL (0.00-0.02) 10/13/21 22:19 Sodium 138 mmol/L (136-145) 10/13/21 22:19 Potassium 3.6 mmol/L (3.5-5.1) 10/13/21 22:19 Chloride 103 mmol/L (98-107) 10/13/21 22:19 Carbon Dioxide 28 mmol/L (21-32) 10/13/21 22:19 Anion Gap 7 (3-11) 10/13/21 22:19 BUN 11 mg/dl (6-23) 10/13/21 22:19 Creatinine 0.84 mg/dl (0.6-1.4) 10/13/21 22:19 Est Cr Clr Drug Dosing 109.1 ml/min 10/13/21 22:19 Est GFR ( Amer) 114.2 ml/min 10/13/21 22:19 Est GFR (Non-Af Amer) 98.6 ml/min 10/13/21 22:19 BUN/Creatinine Ratio 13.1 (10-20) 10/13/21 22:19 Glucose 111 mg/dl (70-99(Fasting)) H 10/13/21 22:19 Calcium 9.4 mg/dl (8.5-10.1) 10/13/21 22:19 Total Bilirubin 0.7 mg/dl (0.2-1.0) 10/13/21 22:19 AST 17 U/L (13-39) 10/13/21 22:19 ALT 14 U/L (7-52) 10/13/21 22:19 Alkaline Phosphatase 96 U/L (34-104) 10/13/21 22:19 Troponin I High Sens 4.2 pg/ml (0-20) 10/13/21 22:19 Total Protein 7.4 gm/dl (6.0-8.3) 10/13/21 22:19 Albumin 4.6 gm/dl (3.4-5.0) 10/13/21 22:19 Globulin 2.8 gm/dl (2.5-4.0) 10/13/21 22:19 Albumin/Globulin Ratio 1.6 (0.9-2) 10/13/21 22:19 Lipase 6 U/L (11-82) L 10/13/21 22:19 Urine Color Yellow 10/13/21 23:15 Urine Appearance Clear (Clear) 10/13/21 23:15 Urine pH 8.5 (4.5-7.5) H 10/13/21 23:15 Ur Specific [place] 1.011 (1.000-1.030) 10/13/21 23:15 Urine Protein Negative (Negative) 10/13/21 23:15 Urine Glucose (UA) Negative (Negative) 10/13/21 23:15 Urine Ketones 1+ (Negative) H 10/13/21 23:15 Urine Blood 2+ (Negative) H 10/13/21 23:15 Urine Nitrite Negative (Negative) 10/13/21 23:15 Urine Bilirubin Negative (Negative) 10/13/21 23:15 Urine Urobilinogen Negative (Negative) 10/13/21 23:15 Ur Leukocyte Esterase Negative (Negative) 10/13/21 23:15 Urine WBC (Auto) 1-5 /hpf (0-5) 10/13/21 23:15 Urine RBC (Auto) >30 /hpf (0-4) H 10/13/21 23:15 U Hyaline Cast (Auto) 1-5 /lpf (0-5) 10/13/21 23:15 U Epithel Cells (Auto) 5-10 /lpf (0-5) H 10/13/21 23:15 Urine Bacteria (Auto) Negative (Negative) 10/13/21 23:[address] abdomen pelvis initial read: Bilateral posterior dependent atelectasis versus residual subpleural pneumonitis. Remainder of the lung bases are clear. Normal heart. Normal liver, gallbladder and biliarysystem. Normal spleen, pancreas and bilateral adrenal glands. Several tinystoneswithin the right kidneylargest measuring 2 mm. Right perinephric stranding with moderate to severe hydronephrosis due to a large stone seen at the right UP junction measuring [id number] mm. Small low- attenuation lesionswithin the left kidney, too small to characterize and largest averaging [id number] mm, statisticallyconsistent with small cysts. Atherosclerotic disease of aortawith no aneurysm. Normal stomach and small bowel and colon. Normal appendix. Normal urinarybladder. Unremarkable prostate gland. Degenerative disease of the spine. EKG as per my interpretation: Rate 75, NSR, normal axis, incomplete RBBB, no ischemia:
[2021-10-14] MEDS ORDERED: LORazepam 2 MG/1 ML VIAL IV PRN (01:17)
[2021-10-14] MEDS ORDERED: PROMETHAZINE HCL 12.5 MG in SODIUM CHLORIDE 0.9% 50 ML IV PRN (01:17)
[2021-10-14] MEDS ORDERED: MoRPHine SULFATE 4 MG/ML 1 ML CARP\\VIAL IV PRN (01:17)
[2021-10-14] MEDS ORDERED: LACTATED RINGER'S 1,000 ML IV ONE (01:20)
[2021-10-14] MEDS ORDERED: ACETAMINOPHEN 325 MG TAB PO PRN (01:20)
[2021-10-14] MEDS ORDERED: POLYETHYLENE (MIRALAX) 17 GM PACK PO PRN (01:21)
--- NOTE | 2021-10-14 06:09 | Urology Consultation ---
Date of Consultation October 14, 2021 Assessment & Plan (1) Obstructive uropathy: Patient has been admitted on the hospitalist service. Recommend proceeding as follows: Provide analgesics Provide antiemetics Provide hydration with IV fluids Patient did receive Flomax in the emergency department to help expel kidney stones Maintain the patient on n.p.o. status in the event that cystoscopy is required this morning. At the present time he is afebrile, has normal white blood cell count, has normal renal function, and urinalysis not indicative of infection therefore an emergent procedure is not required at this time Additional recommendations be forthcoming based on his clinical course as it unfolds History of Present Illness Reason for Consultation: Nephrolithiasis with obstructive uropathy Attending Physician: Kuldip Mena MD History of Present Illness This is a 56-year-old male who comes to the emergency department secondary to nausea and vomiting along with abdominal pain for approximately 2 days. Patient does note some additional pain in the right flank. He denies any dysuria or hematuria. He denies any fevers, shakes, chills. Patient does note a prior history of kidney stones and he says he has to the best of his knowledge he required cystoscopy in the past but he could not provide any further details related to this. In the emergency department the patient had labs and imaging which I independently reviewed. Patient was noted to have several small kidney stones in the right kidney with the largest measuring 2 mm with some associated right perinephric stranding and moderate to severe hydronephrosis. The patient was also noted to have a right ureteropelvic junction stone measuring approximately 14 mm. Labs including CBC were white blood cell count, hemoglobin, hematocrit, and platelet count were all within the normal range. Chemistry profile showed sodium, potassium, BUN, and creatinine were normal. There is no elevation of patient's LFTs or lipase. Urinalysis was not indicative of infection. A COVID test was negative. At the time of my interview the patient was resting comfortably in bed and he was in no distress. Allergies Allergy/AdvReac Type Severity Reaction Status Date / Time No Known Allergies Allergy Verified 10/13/21 22:47 Home Medications Medication Instructions Recorded Confirmed Type acetaminophen 500 mg tablet 500 mg PO DIRECTED PRN 10/13/21 10/13/21 History (Tylenol Extra Strength) ibuprofen 200 mg tablet 600 - 800 mg PO DIRECTED PRN 10/13/21 10/13/21 History Patient History Medical History HTN (hypertension) Hypertension Inguinal hernia Right kidney stone Surgical History H/O hernia repair Social History Smoking Status: Current every day smoker Hx Alcohol Use: No Hx Substance Use: Yes Preferred Language: Palestinian Current Living Situation: Family and Significant Other Feels Safe at Home: Yes Review of Systems Constitutional: no fever and no chills Eyes: no diplopia Ear, Nose, Mouth, Throat: no ear pain Respiratory: no cough and no dyspnea Cardiovascular: no chest pain Gastrointestinal: + abdominal pain, + nausea and + vomiting Genitourinary: + flank pain (Right sided); no dysuria or no hematuria Musculoskeletal: + back pain (Right-sided flank pain) Integumentary: no rash Neurologic: no localized weakness Physical Exam Constitutional: WD/WN, vitals as above Eyes: no conjunctival abnormality ENMT: Ears: no external ear abnormality Neck: trachea midline Respiratory: normal respiratory effort; no respiratory distress Cardiovascular: Rate/Rhythm: regular rate and regular rhythm Gastrointestinal (Abdomen): Soft, nondistended. There is some generalized pain with palpation greatest on the right side Musculoskeletal: No calf tenderness Skin: no rashes Neurologic: moves all extremities Psychiatric: A+Ox3, euthymic affect Genitourinary: no CVA tenderness Results & Data ([facility]) Vital Signs (Past 12 Hours) Vital Signs Temp Pulse Pulse Resp BP BP Pulse Ox 10/14/21 02:11 36.6 C 70 18 152/100 H 98 10/14/21 00:59 96 10/14/21 00:58 88 21 96 10/14/21 00:30 81 16 155/105 H 10/14/21 00:15 78 24 96 10/14/21 00:01 86 15 10/14/21 00:00 76 23 10/13/21 23:45 73 18 10/13/21 23:35 69 22 132/92 98 10/13/21 23:32 97 10/13/21 22:04 36 C L 81 18 161/111 H 98 PG Care Time/CCT Total # of Minutes Spent Total Time Spent with Patient: Total time spent is greater than 50% in coordination of care (as documented) at patient's floor/unit and/or counseling patient: Coding Level of Care Code 36413 Inpt Consult Level 5 Diagnoses Obstructive uropathy N13.9
--- NOTE | 2021-10-14 07:33 | CT Scan Report ---
ABDOMEN AND PELVIS CT WITH IV CONTRAST CT DOSE: 353.98 mGy.cm HISTORY: Generalized abdominal pain, no BM TECHNIQUE: Multiaxial CT images of the abdomen and pelvis were performed following the use of intrave nous contrast. A dose lowering technique was utilized adhering to the principles of ALARA. COMPARISON STUDY: Abdomen and pelvis CT 08/16/2016. FINDINGS: Groundglass densities within the lungs posteriorly favor mild dependent change. Mild motion artifact. No pneumoperitoneum. No pneumatosis. No fractures within the visualized osseous structures . The liver, spleen, adrenal glands, pancreas, and gallbladder are unremarkable. There are few puncta te stones within the right kidney. No left renal calculi. There are few small hypodense lesions withi n the left kidney which are incompletely characters on this noncontrast study but statistically repre sent cysts. There is moderate right perinephric fluid/edema with moderate to severe right hydronephro sis secondary to an obstructing 14 x 12 mm stone at the ureteropelvic junction. Mild bladder wall thi ckening. Suboptimal evaluation for bowel pathology due to the lack of intravenous and oral contrast. However, there is no definite bowel wall thickening or obstruction. Normal appendix. No retroperitone al lymphadenopathy. Normal caliber abdominal aorta. IMPRESSION: 1. Moderate to severe right-sided hydronephrosis secondary to an obstructing 14 x 12 mm stone at the right ureteropelvic junction. 2. Right-sided nephrolithiasis. 3. Bladder wall thickening. 4. No bowel wall thickening or obstruction. ACT 112: Negative or not required by law. Electronically signed by: Justino Cardenas M.D. 10/14/2021 7:31 AM
--- NOTE | 2021-10-14 08:02 | Hospitalist Progress Note ---
Date of Service October 14, 2021 Assessment & Plan (1) Obstructive uropathy: Plan: Secondary to recurrent kidney stone CT abd/ pelvis 1. Moderate to severe right-sided hydronephrosis secondary to an obstructing 14 x 12 mm stone at the right ureteropelvic junction. 2. Right-sided nephrolithiasis. 3. Bladder wall thickening. 4. No bowel wall thickening or obstruction. GMF Analgesia, IVF Strain urine Urology consult Re: Renal colic/obstructive uropathy N.p.o. until patient seen by urology in anticipation of procedure. Plan for cystoscopy, right ureteral stent placement today (10/14) Situational hypertension chronic back pain, at baseline BPH as per records Hyperglycemia rule out DM Check hemoglobin A1c - current A1c 5.5% Ongoing tobacco abuse Nicotine patch as needed DVT prophylaxis. Lovenox subcu (now put on hold for procedure) Full code Patient's - Ms. Maximilian Marinelli , contact #[phone]. Admission and Anticipated Discharge Date Admission Date: October 14, 2021 Subjective Patient seen in follow-up of kidney stone, obstructive uropathy Currently laying in bed, in no acute distress Reports feeling much better He is voiding now without much difficulty, no hematuria Denies fevers, chills, nausea/ vomiting, significant abdominal pain No chest pain or shortness of breath Review of Systems Review of Systems: All systems reviewed & are unremarkable except as noted in Subjective Physical Exam Physical Exam: GENERAL: Comfortable, looks older than stated age, in NAD HEENT: NC/AT, poor dentition NECK : Supple, no tenderness CHEST : Decreased breath sounds, no tenderness HEART : RRR, no obvious murmurs ABDOMEN: Soft, nontender to alp., + BS, + R CVA tenderness EXTREMITIES : No LE swelling/tenderness, moves extremities SKIN: Normal color, warm NEUROLOGIC : Alert oriented, answering questions appropriately,no facial asymmetry, speech fluent, moves extremities Results & Data Results & Data ([facility]) Vital Signs (Past 12 Hours) Vital Signs Temp Pulse Pulse Resp BP BP Pulse Ox 10/14/21 02:11 36.6 C 70 18 152/100 H 98 10/14/21 00:59 96 10/14/21 00:58 88 21 96 10/14/21 00:30 81 16 155/105 H 10/14/21 00:15 78 24 96 10/14/21 00:01 86 15 10/14/21 00:00 76 23 10/13/21 23:45 73 18 10/13/21 23:35 69 22 132/92 98 10/13/21 23:32 97 10/13/21 22:04 36 C L 81 18 161/111 H 98 Laboratory Results 10/14/21 10/14/21 10/14/21 Range/Units Unknown 08:42 08:42 WBC 9.26 (4.8-10.8) K/uL RBC 5.03 (4.7-6.1) M/uL Hgb 15.6 (14.0-18.0) g/dL Hct 43.8 (42-52) % MCV 87.1 (80-100) fL MCH 31.0 (25-34) pg MCHC 35.6 (32-36) g/dL RDW Std Deviation 40.4 (36.4-46.3) fL RDW Coeff of Sarahi 12.5 (11.5-14.5) % Plt Count 273 (130-400) K/uL MPV 9.2 (7.4-10.4) fL Immature Gran % (Auto) 0.2 % Neut % (Auto) 85.3 % Lymph % (Auto) 9.8 % Sebastian % (Auto) 4.4 % Eos % (Auto) 0.1 % Baso % (Auto) 0.2 % Neut # (Auto) 7.89 H (1.4-6.5) K/uL Lymph # (Auto) 0.91 L (1.2-3.4) K/uL Sebastian # (Auto) 0.41 (0.11-0.59) K/uL Eos # (Auto) 0.01 (0-0.5) K/uL Baso # (Auto) 0.02 (0-0.2) K/uL Immature Gran # (Auto) 0.02 (0.00-0.02) K/uL Sodium 136 (136-145) mmol/L Potassium 3.8 (3.5-5.1) mmol/L Chloride 103 (98-107) mmol/L Carbon Dioxide 25 (21-32) mmol/L Anion Gap 8 (3-11) BUN 10 (6-23) mg/dl Creatinine 0.71 (0.6-1.4) mg/dl Est Cr Clr Drug Dosing 129.0 ml/min Est GFR ( Amer) 122.4 ml/min Est GFR (Non-Af Amer) 105.6 ml/min BUN/Creatinine Ratio 14.1 (10-20) Glucose 140 H (70-99(Fasting)) mg/dl Estimat Average Glucose mg/dl Hemoglobin A1c (4.5-5.6) % Calcium 9.1 (8.5-10.1) mg/dl Total Bilirubin (0.2-1.0) mg/dl AST (13-39) U/L ALT (7-52) U/L Alkaline Phosphatase (34-104) U/L Troponin I High Sens (0-20) pg/ml Total Protein (6.0-8.3) gm/dl Albumin (3.4-5.0) gm/dl Globulin (2.5-4.0) gm/dl Albumin/Globulin Ratio (0.9-2) Lipase (11-82) U/L Urine Color Urine Appearance (Clear) Urine pH (4.5-7.5) Ur Specific [place] (1.000-1.030) Urine Protein (Negative) Urine Glucose (UA) (Negative) Urine Ketones (Negative) Urine Blood (Negative) Urine Nitrite (Negative) Urine Bilirubin (Negative) Urine Urobilinogen (Negative) Ur Leukocyte Esterase (Negative) Urine WBC (Auto) (0-5) /hpf Urine RBC (Auto) (0-4) /hpf U Hyaline Cast (Auto) (0-5) /lpf U Epithel Cells (Auto) (0-5) /lpf Urine Bacteria (Auto) (Negative) SARS-CoV-2, RNA, NAAT NEGATIVE (NEGATIVE) 10/14/21 10/13/21 10/13/21 Range/Units 08:42 23:15 22:19 WBC 9.73 (4.8-10.8) K/uL RBC 4.99 (4.7-6.1) M/uL Hgb 15.5 (14.0-18.0) g/dL Hct 44.0 (42-52) % MCV 88.2 (80-100) fL MCH 31.1 (25-34) pg MCHC 35.2 (32-36) g/dL RDW Std Deviation 40.9 (36.4-46.3) fL RDW Coeff of Sarahi 12.7 (11.5-14.5) % Plt Count 267 (130-400) K/uL MPV 9.2 (7.4-10.4) fL Immature Gran % (Auto) 0.1 % Neut % (Auto) 80.0 % Lymph % (Auto) 11.6 % Sebastian % (Auto) 6.6 % Eos % (Auto) 1.5 % Baso % (Auto) 0.2 % Neut # (Auto) 7.78 H (1.4-6.5) K/uL Lymph # (Auto) 1.13 L (1.2-3.4) K/uL Sebastian # (Auto) 0.64 H (0.11-0.59) K/uL Eos # (Auto) 0.15 (0-0.5) K/uL Baso # (Auto) 0.02 (0-0.2) K/uL Immature Gran # (Auto) 0.01 (0.00-0.02) K/uL Sodium (136-145) mmol/L Potassium (3.5-5.1) mmol/L Chloride (98-107) mmol/L Carbon Dioxide (21-32) mmol/L Anion Gap (3-11) BUN (6-23) mg/dl Creatinine (0.6-1.4) mg/dl Est Cr Clr Drug Dosing ml/min Est GFR ( Amer) ml/min Est GFR (Non-Af Amer) ml/min BUN/Creatinine Ratio (10-20) Glucose (70-99(Fasting)) mg/dl Estimat Average Glucose 111 mg/dl Hemoglobin A1c 5.5 (4.5-5.6) % Calcium (8.5-10.1) mg/dl Total Bilirubin (0.2-1.0) mg/dl AST (13-39) U/L ALT (7-52) U/L Alkaline Phosphatase (34-104) U/L Troponin I High Sens (0-20) pg/ml Total Protein (6.0-8.3) gm/dl Albumin (3.4-5.0) gm/dl Globulin (2.5-4.0) gm/dl Albumin/Globulin Ratio (0.9-2) Lipase (11-82) U/L Urine Color Yellow Urine Appearance Clear (Clear) Urine pH 8.5 H (4.5-7.5) Ur Specific [place] 1.011 (1.000-1.030) Urine Protein Negative (Negative) Urine Glucose (UA) Negative (Negative) Urine Ketones 1+ H (Negative) Urine Blood 2+ H (Negative) Urine Nitrite Negative (Negative) Urine Bilirubin Negative (Negative) Urine Urobilinogen Negative (Negative) Ur Leukocyte Esterase Negative (Negative) Urine WBC (Auto) 1-5 (0-5) /hpf Urine RBC (Auto) >30 H (0-4) /hpf U Hyaline Cast (Auto) 1-5 (0-5) /lpf U Epithel Cells (Auto) 5-10 H (0-5) /lpf Urine Bacteria (Auto) Negative (Negative) SARS-CoV-2, RNA, NAAT (NEGATIVE) 10/13/21 Range/Units 22:19 WBC (4.8-10.8) K/uL RBC (4.7-6.1) M/uL Hgb (14.0-18.0) g/dL Hct (42-52) % MCV (80-100) fL MCH (25-34) pg MCHC (32-36) g/dL RDW Std Deviation (36.4-46.3) fL RDW Coeff of Sarahi (11.5-14.5) % Plt Count (130-400) K/uL MPV (7.4-10.4) fL Immature Gran % (Auto) % Neut % (Auto) % Lymph % (Auto) % Sebastian % (Auto) % Eos % (Auto) % Baso % (Auto) % Neut # (Auto) (1.4-6.5) K/uL Lymph # (Auto) (1.2-3.4) K/uL Sebastian # (Auto) (0.11-0.59) K/uL Eos # (Auto) (0-0.5) K/uL Baso # (Auto) (0-0.2) K/uL Immature Gran # (Auto) (0.00-0.02) K/uL Sodium 138 (136-145) mmol/L Potassium 3.6 (3.5-5.1) mmol/L Chloride 103 (98-107) mmol/L Carbon Dioxide 28 (21-32) mmol/L Anion Gap 7 (3-11) BUN 11 (6-23) mg/dl Creatinine 0.84 (0.6-1.4) mg/dl Est Cr Clr Drug Dosing 109.1 ml/min Est GFR ( Amer) 114.2 ml/min Est GFR (Non-Af Amer) 98.6 ml/min BUN/Creatinine Ratio 13.1 (10-20) Glucose 111 H (70-99(Fasting)) mg/dl Estimat Average Glucose mg/dl Hemoglobin A1c (4.5-5.6) % Calcium 9.4 (8.5-10.1) mg/dl Total Bilirubin 0.7 (0.2-1.0) mg/dl AST 17 (13-39) U/L ALT 14 (7-52) U/L Alkaline Phosphatase 96 (34-104) U/L Troponin I High Sens 4.2 (0-20) pg/ml Total Protein 7.4 (6.0-8.3) gm/dl Albumin 4.6 (3.4-5.0) gm/dl Globulin 2.8 (2.5-4.0) gm/dl Albumin/Globulin Ratio 1.6 (0.9-2) Lipase 6 L (11-82) U/L Urine Color Urine Appearance (Clear) Urine pH (4.5-7.5) Ur Specific [place] (1.000-1.030) Urine Protein (Negative) Urine Glucose (UA) (Negative) Urine Ketones (Negative) Urine Blood (Negative) Urine Nitrite (Negative) Urine Bilirubin (Negative) Urine Urobilinogen (Negative) Ur Leukocyte Esterase (Negative) Urine WBC (Auto) (0-5) /hpf Urine RBC (Auto) (0-4) /hpf U Hyaline Cast (Auto) (0-5) /lpf U Epithel Cells (Auto) (0-5) /lpf Urine Bacteria (Auto) (Negative) SARS-CoV-2, RNA, NAAT (NEGATIVE) Medications Administered Current Inpatient Medications Acetaminophen (Acetaminophen 325 Mg Tab) 650 mg PO Q4H PRN PRN Reason: pain/fever Stop: 11/13/21 01:19 Enoxaparin Sodium (Enoxaparin Inj 40 Mg/0.4 Ml Syr) 40 mg SQ QAM RUSTAM Stop: 11/13/21 08:59 Promethazine HCl 12.5 mg/ (Sodium Chloride) 50.5 mls @ 202 mls/hr IV Q6H PRN PRN Reason: Nausea And Vomiting Stop: 11/13/21 01:16 Lactated Ringer's (Lr) 1,000 mls @ 75 mls/hr IV .[id number] ONE Stop: 10/14/21 14:39 Last Admin: 10/14/21 02:29 Dose: 75 mls/hr Documented by: Lorazepam (Lorazepam 2 Mg/1 Ml Vial) 0.5 mg IV Q4H PRN PRN Reason: Anxiety Stop: 11/13/21 01:16 Morphine Sulfate (Morphine Sulfate 4 Mg/Ml 1 Ml Carp\Vial) 4 mg IV Q4H PRN PRN Reason: Pain Stop: 10/28/21 01:16 Oxycodone HCl (Oxycodone Hcl Ir 5 Mg Tab (Immediate Release)) 5 - 10 mg PO QID PRN PRN Reason: Pain Stop: 10/28/21 01:16 Polyethylene Glycol (Polyethylene (Miralax) 17 Gm Pack) 17 gm PO DAILY PRN PRN Reason: Constipation Stop: 11/13/21 01:20 Senna/Docusate Sodium (Docusate Sodium/Senna 50/8.6mg Tab) 1 tab PO QAM [facility] Stop: 11/13/21 01:24
--- NOTE | 2021-10-14 08:26 | Urology Progress Note ---
Date of Service October 14, 2021 Assessment & Plan (1) Renal colic on right side: (2) Obstructive uropathy: Plan: 56yo M who presented with abdominal/flank pain with associated nausea vomiting and found to have an obstructing 14 x 12 mm stone at the right ureteropelvic junction causing moderate to severe right-sided hydronephrosis. - Plan of care reviewed with Dr. Dominguez, on-call urologist. - Pt afebrile, non-toxic appearing. - Labs reviewed - No leukocytosis. Renal function normal. - Urinalysis not indicative of infection. - Discussed option for acute stone management with cystoscopy and stent placement given his flank pain and that he is unlikely to pass the stone spontaneously given the size. Ureteral stents were discussed as well as post- operative issues and pain management. - Discussed that he will still need an additional procedure for stone treatment at a later date. - Patient wishes to proceed with stent placement today. Risks/benefits discussed. All questions were answered. - Will plan to proceed to OR today for cystoscopy, right retrograde pyelogram, right ureteral stent placement. - Risks and benefits to be reviewed with patient by Dr. Dominguez. OR notified. Covid test negative. Will cover with IV Ancef preoperatively. - Keep NPO. - Continue supportive care and pain management. - Will continue to follow. Admission and Anticipated Discharge Date Admission Date: October 14, 2021 Supervising Physician Co-Signing Physician Notes Saw patient personally. Agree with plan above. Large right ureteral stone that will not pass on its own so recommended stent placement. Consent obtained and patient marked. He understands that due to size of stone, if I cannot get a stent in place he would then need transfer for nephrostomy tube. He expressed understanding. Subjective Pt examined at bedside this AM. Awake, resting in bed on arrival. No acute distress. Reports he is feeling much better. Denies any significant pain at present. No fevers or chills. Denies nausea/vomiting. Has been NPO. Voiding without issue. No hematuria/dysuria. States he had a stent in the past and tolerated ok. Review of Systems Constitutional: as per Subjective / HPI Gastrointestinal: as per Subjective / HPI Genitourinary: + as per Subjective / HPI Physical Exam Constitutional: no acute distress Respiratory: normal respiratory effort; no respiratory distress and no labored breathing Gastrointestinal (Abdomen): Percussion/Palpation: abdomen soft; abdomen nontender and no guarding Skin: Warm and dry Neurologic: moves all extremities and awake Psychiatric: Orientation: alert, oriented x 3 and cooperative Genitourinary: no CVA tenderness Results & Data ([facility]) Vital Signs (Past 12 Hours) Vital Signs Temp Pulse Pulse Pulse Resp BP BP 10/14/21 08:16 36.3 C L 100 H 22 144/86 H 10/14/21 02:11 36.6 C 70 18 10/14/21 00:59 10/14/21 00:58 88 21 10/14/21 00:30 81 16 155/105 H 10/14/21 00:15 78 24 10/14/21 00:01 86 15 10/14/21 00:00 76 23 10/13/21 23:45 73 18 10/13/21 23:35 69 22 132/92 10/13/21 23:32 10/13/21 22:04 36 C L 81 18 161/111 H BP Pulse Ox 10/14/21 08:16 96 10/14/21 02:11 152/100 H 98 10/14/21 00:59 96 10/14/21 00:58 96 10/14/21 00:30 10/14/21 00:15 96 10/14/21 00:01 10/14/21 00:00 10/13/21 23:45 10/13/21 23:35 98 10/13/21 23:32 97 10/13/21 22:04 98 PG Care Time/CCT Total # of Minutes Spent Total Time Spent with Patient: Total time spent is greater than 50% in coordination of care (as documented) at patient's floor/unit and/or counseling patient: Coding Level of Care Code None Diagnoses Renal colic on right side N23 Obstructive uropathy N13.9
[2021-10-14 09:05] LABS: Basophils # (auto) 0.02 K/uL (0-0.2); Basophils % (auto) 0.2 %; Eosinophils # (auto) 0.01 K/uL (0-0.5); Eosinophils % (auto) 0.1 %; Hematocrit (blood only) 43.8 % (42-52); Hemoglobin 15.6 g/dL (14.0-18.0); Immature Granulocytes # (auto) 0.02 K/uL (0.00-0.02); Immature Granulocytes % (auto) 0.2 %; Lymphocytes # (auto) 0.91 K/uL (1.2-3.4); Lymphocytes % (auto) 9.8 %; Mean Corpuscular Hgb Conc 35.6 g/dL (32-36); Mean Corpuscular Volume 87.1 fL (80-100); Mean Platelet Volume 9.2 fL (7.4-10.4); Monocytes # (auto) 0.41 K/uL (0.11-0.59); Monocytes % (auto) 4.4 %; Neutrophils # (auto) 7.89 K/uL (1.4-6.5); Neutrophils % (auto) 85.3 %; Platelet Count 273 K/uL (130-400); RDW Coefficient of Variation 12.5 % (11.5-14.5); RDW Standard Deviation 40.4 fL (36.4-46.3); Red Blood Count 5.03 M/uL (4.7-6.1); White Blood Count 9.26 K/uL (4.8-10.8)
[2021-10-14] MEDS ORDERED: ceFAZolin 2000MG 2,000 MG/15 ML SYR IV ONE (09:15)
[2021-10-14 09:27] LABS: BUN Creatinine Ratio 14.1 (10-20); Calcium 9.1 mg/dl (8.5-10.1); Est GFR (African American) 122.4 ml/min; Est GFR (Non-African American) 105.6 ml/min; Estimated Average Glucose 111 mg/dl; Hemoglobin A1C 5.5 % (4.5-5.6); Potassium 3.8 mmol/L (3.5-5.1)
[2021-10-14] MEDS: ENOXAPARIN INJ 40 MG/0.4 ML SYR SQ SCH (09:28)
--- NOTE | 2021-10-14 09:51 | Anesthesiology Consultation ---
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 History Surgery Operation Date: 10/14/21 08:20 Proposed Procedures p Cystoscopy, Right Retrograde Pyelogram, Right Ureteral Stent Insertion - Collin Dominguez MD Height/Weight Height: 6 ft Weight: 81.3 kg Allergies Allergy/AdvReac Type Severity Reaction Status Date / Time No Known Allergies Allergy Verified 10/13/21 22:47 Medications Home Medications Medication Instructions Recorded Confirmed Last Taken acetaminophen 500 mg tablet 500 mg PO DIRECTED PRN 10/13/21 10/13/21 Unknown (Tylenol Extra Strength) ibuprofen 200 mg tablet 600 - 800 mg PO DIRECTED PRN 10/13/21 10/13/21 Unknown Active Medications Generic Name Dose Route Start Last Admin Trade Name Freq PRN Reason Stop Dose Admin Enoxaparin Sodium 40 mg 10/14/21 09:00 10/14/21 09:28 Enoxaparin Inj 40 Mg/0.4 Ml Syr SQ 11/13/21 08:59 40 mg QAM RUSTAM Administration Lactated Ringer's 1,000 mls @ 75 mls/hr 10/14/21 01:20 10/14/21 02:29 Lr IV 10/14/21 14:39 75 mls/hr .[id number] ONE Administration Past Medical History Medical History HTN (hypertension) Hypertension Inguinal hernia Right kidney stone Past Surgical History Surgical History H/O hernia repair Social History Smoking Status: Current every day smoker Hx Alcohol Use: No Hx Substance Use: Yes substance use type: marijuana Physical Exam Vital Signs Last Vital Signs Temp 97.4 F L 10/14/21 08:16 Pulse 100 H 10/14/21 08:16 Resp 22 10/14/21 08:16 BP 144/86 H 10/14/21 08:16 Pulse Ox 96 10/14/21 08:16 Testing Laboratory Results 10/14/21 08:42 10/14/21 08:42 Hemoglobin A1c 5.5 % (4.5-5.6) 10/14/21 08:42 Urine Color Yellow 10/13/21 23:15 Urine Appearance Clear (Clear) 10/13/21 23:15 Urine pH 8.5 (4.5-7.5) H 10/13/21 23:15 Ur Specific [place] 1.011 (1.000-1.030) 10/13/21 23:15 Urine Protein Negative (Negative) 10/13/21 23:15 Urine Glucose (UA) Negative (Negative) 10/13/21 23:15 Urine Ketones 1+ (Negative) H 10/13/21 23:15 Urine Nitrite Negative (Negative) 10/13/21 23:15 Ur Leukocyte Esterase Negative (Negative) 10/13/21 23:15 Urine WBC (Auto) 1-5 /hpf (0-5) 10/13/21 23:15 Urine RBC (Auto) >30 /hpf (0-4) H 10/13/21 23:15 U Hyaline Cast (Auto) 1-5 /lpf (0-5) 10/13/21 23:15 U Epithel Cells (Auto) 5-10 /lpf (0-5) H 10/13/21 23:15 Urine Bacteria (Auto) Negative (Negative) 10/13/21 23:15 Laboratory Tests 10/14/21 Unknown SARS-CoV-2, RNA, NAAT NEGATIVE Electrocardiogram Date: 07/10/18 Normal sinus rhythm, rate 90 bpm Incomplete right bundle branch block Borderline ECG When compared with ECG of 29-APR-2015 12:07, Incomplete right bundle branch block is now Present Confirmed by ALTAGRACIA ARRIAZA ([id number]) on 07/10/2018 9:57:05 PM
[2021-10-14] MEDS ORDERED: LIDOCAINE 2% 2 ML VIAL/AMP(20MG/ML) INFIL ONE (09:52)
[2021-10-14] MEDS ORDERED: PROPOFOL IV EMULSION 10 MG/ML 20 ML VIAL IV ONE ×2 (09:52→10:47)
[2021-10-14] MEDS ORDERED: MIDAZOLAM HCL 1 MG/ML 2ML VIAL ONE ×2 (09:53)
[2021-10-14] MEDS ORDERED: fentaNYL citrate 100 MCG/2 ML VIAL ONE (09:53)
[2021-10-14] MEDS ORDERED: fentaNYL citrate 100 MCG/2 ML VIAL IV PRN (10:19)
[2021-10-14] MEDS ORDERED: ONDANSETRON INJ 2 MG/ML 2 ML VIAL IV PRN (10:19)
[2021-10-14] MEDS ORDERED: ATROPINE SULFATE 0.1 MG/ML 10ML SYR IV PRN (10:19)
[2021-10-14] MEDS ORDERED: ePHEDrine sulfate 50 MG/ML AMP IV PRN (10:19)
[2021-10-14] MEDS ORDERED: KETAMINE 50 MG/5 ML SYRINGE ONE (10:35)
[2021-10-14] MEDS ORDERED: ONDANSETRON INJ 2 MG/ML 2 ML VIAL ONE (10:48)
--- NOTE | 2021-10-14 10:50 | Post Operative Brief Note ---
PG Immediate Post Op with CF Date of Surgery October 14, 2021 Pre & Post Diagnosis Operation Date: 10/14/21 08:20 Pre-Op Diagnosis: OBS UROPATHY Post-Op Diagnosis: OBS UROPATHY I identified the patient and participated in the time-out.: Yes Procedure Operation Date: 10/14/21 08:20 Actual Procedures p Cystoscopy, Right Retrograde Pyelogram, Right Ureteral Stent Insertion(Right) - Collin Dominguez MD Surgeon Collin Dominguez MD Customer Development Representative None Estimated Blood Loss 0 Findings See Below -Stone seen on machine bobbin winder. Retrograde with significant right hydro. Stent in ap propriate position Drains Other (6x26 R stent ) Complications none
--- NOTE | 2021-10-14 10:58 | Operative Report ---
PG Post Operative Report Pre & Post Diagnosis Operation Date: 10/14/21 08:20 Pre-Op Diagnosis: OBS UROPATHY Post-Op Diagnosis: OBS UROPATHY I identified the patient and participated in the time-out.: Yes Procedure Operation Date: 10/14/21 08:20 Actual Procedures p Cystoscopy, Right Retrograde Pyelogram with radiographic interpretation, Right Ureteral Stent Insertion(Right) - Collin Dominguez MD Surgeon Collin Dominguez MD Biochemist None Estimated Blood Loss 0 Findings See Below Stone seen in right proximal ureter on bobcat operator film. Right retrograde pyelogram showed significant hydronephrosis. Right ureteral stent in appropriate position Specimens None Drains 6 [place] by 26 cm ureteral stent Anesthesia Type MAC Complications none Indications 56-year-old male with a large right proximal ureteral calculus with obstruction. Stable but due to size of stone, recommended stent. Patient agreed. Description of Procedure After informed consent was obtained, the patient was transported operative suite. MAC anesthesia was induced. The patient was placed in dorsolithotomy position prepped and draped in a sterile fashion. They received preoperative An cef for antibiotic prophylaxis. An appropriate surgical timeout was performed. A 22 [place] rigid scope was inserted per urethra into the bladder. Gibson cystoscopy revealed no stones or lesions. I turned my attention the right ureteral orifice and intubated this with a 5 [place] open-ended catheter. A right retrograde pyelogram was shot which showed significant hydronephrosis and the stone in the proximal ureter A sensor wire was advanced into the kidney and confirmed fluoroscopically. A 6 [place] by 26 cm right ureteral stent was deployed with a good proximal coil in the renal pelvis and a good distal coil noted in the bladder, confirmed fluoroscopically and under direct visualization, respectively. The bladder was emptied and the scope was removed. This concluded the end of the case. All counts were correct at the end of the case. I was present, scrubbed, and actively participated for the entirety of the procedure. I attest to the content of the Intraoperative Record and any orders documented therein. Any exceptions are noted below.
[2021-10-14] MEDS ORDERED: DIATRIZOATE MEGLUMINE 30% 100ML VIAL INSTIL PRN (11:06)
--- NOTE | 2021-10-14 11:42 | Fluoroscopy Report ---
FL retrograde includes kub CLINICAL HISTORY: Right retrograde exam with stent placement. COMPARISON STUDY: CT of the abdomen and pelvis October 13, 2021. FLUOROSCOPY TIME: 11 seconds. FLUOROSCOPIC IMAGES: 6 FINDINGS: Fluoroscopy was provided during cystoscopy and right retrograde exam with right ureteral st ent placement. Filling defects within the right ureter are noted. There is right hydronephrosis. Meche l image demonstrates a density along the proximal right ureter likely reflecting the right ureteral c alculus IMPRESSION: Fluoroscopy provided during right retrograde exam with right ureteral stent placement. ACT 112: Negative or not required by law. Electronically signed by: Magen Mccarthy M.D. 10/14/2021 11:40 AM
--- NOTE | 2021-10-14 12:37 | Anesthesiology Progress Note ---
Date of Service October 14, 2021 Anesthesia Post Procedure Vital Signs Vital Signs: Temp Pulse Pulse Pulse Resp BP BP 10/14/21 12:23 97.7 F 91 H 14 128/80 10/14/21 11:51 97.7 F 95 H 16 134/87 10/14/21 11:35 97.9 F 91 H 13 137/92 10/14/21 11:25 92 H 16 128/87 10/14/21 11:15 91 H 16 130/89 10/14/21 11:05 93 H 15 133/84 10/14/21 10:56 99.0 F 101 H 20 130/73 10/14/21 08:16 97.4 F L 100 H 22 144/86 H 10/14/21 02:11 97.9 F 70 18 10/14/21 00:59 10/14/21 00:58 88 21 10/14/21 00:30 81 16 155/105 H 10/14/21 00:15 78 24 10/14/21 00:01 86 15 10/14/21 00:00 76 23 10/13/21 23:45 73 18 10/13/21 23:35 69 22 132/92 10/13/21 23:32 10/13/21 22:04 96.8 F L 81 18 161/111 H BP Pulse Ox 10/14/21 12:23 98 10/14/21 11:51 96 10/14/21 11:35 95 10/14/21 11:25 99 10/14/21 11:15 100 10/14/21 11:05 100 10/14/21 10:56 96 10/14/21 08:16 96 10/14/21 02:11 152/100 H 98 10/14/21 00:59 96 10/14/21 00:58 96 10/14/21 00:30 10/14/21 00:15 96 10/14/21 00:01 10/14/21 00:00 10/13/21 23:45 10/13/21 23:35 98 10/13/21 23:32 97 10/13/21 22:04 98 Pain Intensity Lower Abdomen: Pain Intensity: 7 Transfer of Care Handoff Completed per policy Notes Mental Status: alert / awake / arousable and participated in evaluation Patient Amnestic to Procedure: Yes Nausea / Vomiting: adequately controlled Pain: adequately controlled Airway Patency, RR, SpO2: stable & adequate BP & HR: stable & adequate Hydration State: stable & adequate Anesthetic Complications: no major complications apparent and Pt Satisfied with anesthetic care
--- NOTE | 2021-10-14 13:41 | Electrocardiogram Report ---
Test Reason : Blood Pressure : / mmHG Vent. Rate : 075 BPM Atrial Rate : 075 BPM P-R Int : 194 ms QRS Dur : 098 ms QT Int : 398 ms P-R-T Axes : 071 073 063 degrees QTc Int : 444 ms Sinus rhythm with Premature atrial complexes Incomplete right bundle branch block Borderline ECG When compared with ECG of 10-JUL-2018 11:57, Premature atrial complexes are now Present Confirmed by Arya Lewis ([id number]) on 10/14/2021 1:41:26 PM Referred By: REFERRED SELF Confirmed By:Arya Lewis
[2021-10-14] MEDS: oxyCODONE HCL IR 5 MG TAB (IMMEDIATE RELEASE) PO PRN ×2 (14:19→20:22)
[2021-10-14] MEDS: DOCUSATE SODIUM/SENNA 50/8.6MG TAB PO SCH (17:15)
[2021-10-15] MEDS: oxyCODONE HCL IR 5 MG TAB (IMMEDIATE RELEASE) PO PRN (06:34)
[2021-10-15] MEDS: DOCUSATE SODIUM/SENNA 50/8.6MG TAB PO SCH (07:45)
[2021-10-15] MEDS: ENOXAPARIN INJ 40 MG/0.4 ML SYR SQ SCH (07:45)
--- NOTE | 2021-10-15 07:56 | Urology Progress Note ---
Date of Service October 15, 2021 Assessment & Plan (1) Obstructive uropathy: Plan: 56yo M who presented with abdominal/flank pain with associated nausea vomiting and found to have an obstructing 14 x 12 mm stone at the right ureteropelvic junction causing moderate to severe right-sided hydronephrosis. - POD #1 s/p cystoscopy, right ureteral stent placement. - Tolerating the ureteral stent with minimal bother. - Afebrile, hemodynamically stable. - Labs reviewed - White count and creatinine normal. - Urinalysis on admission not indicative of infection. - Voiding spontaneously without issue. - OK for discharge from perspective. - Recommend Tamsulosin, prn Pyridium and prn pain medication for stent management. - Expected clinical course reviewed, all questions answered. - Will arrange outpatient follow-up with our service. - Thank you for allowing us to participate in the acute care of Mr. Marinelli. Please reconsult us with additional questions, concerns or changes in patient status. Admission and Anticipated Discharge Date Admission Date: October 14, 2021 Supervising Physician Co-Signing Physician Notes Discussed patient with TYLER. Agree with plan. Subjective Pt examined at bedside this AM. Awake, resting in bed on arrival. No acute issues overnight. Denies fever or chills. Tolerating diet, no nausea or vomiting. Denies significant pain. Voiding without issue. Some hematuria, denies dysuria. Eager to go home today. Review of Systems Constitutional: as per Subjective / HPI Cardiovascular: no chest pain, no dyspnea and no lightheadedness Gastrointestinal: as per Subjective / HPI Genitourinary: + as per Subjective / HPI Physical Exam Constitutional: cooperative and comfortable; no acute distress Respiratory: normal respiratory effort; no respiratory distress and no labored breathing Gastrointestinal (Abdomen): Percussion/Palpation: abdomen soft; abdomen nontender and no guarding Skin: No visible rashes or lesions Neurologic: moves all extremities and awake Psychiatric: Orientation: alert, oriented x 3 and cooperative Genitourinary: no CVA tenderness Results & Data ([facility]) Vital Signs (Past 12 Hours) Vital Signs Temp Pulse Resp BP Pulse Ox 10/15/21 07:35 36.5 C 94 H 17 121/83 93 10/15/21 03:29 36.7 C 78 16 115/74 96 10/14/21 22:40 36.4 C L 92 H 18 142/67 H 94 PG Care Time/CCT Total # of Minutes Spent Total Time Spent with Patient: Total time spent is greater than 50% in coordination of care (as documented) at patient's floor/unit and/or counseling patient: Coding Level of Care Code 57986 Subseq Hosp Care Lvl 2 Diagnoses Obstructive uropathy N13.9
--- NOTE | 2021-10-15 08:19 | Hospitalist Progress Note ---
Date of Service October 15, 2021 Assessment & Plan (1) Obstructive uropathy: Plan: Secondary to recurrent kidney stone CT abd/ pelvis 1. Moderate to severe right-sided hydronephrosis secondary to an obstructing 14 x 12 mm stone at the right ureteropelvic junction. 2. Right-sided nephrolithiasis. 3. Bladder wall thickening. 4. No bowel wall thickening or obstruction. GMF Analgesia, IVF Strain urine Urology consult Re: Renal colic/obstructive uropathy N.p.o. until patient seen by urology in anticipation of procedure. Now s/p cystoscopy, right ureteral stent placement (10/14) Patient tolerated procedure well She is afebrile, hemodynamically stable, white count and creatinine normal UA on admission not indicative of infection Plan to discharge on tamsulosin, as needed Pyridium, and as needed pain meds for stent management Patient to follow-up with urology as outpatient Situational hypertension chronic back pain, at baseline BPH as per records Hyperglycemia rule out DM Check hemoglobin A1c - current A1c 5.5% Ongoing tobacco abuse Nicotine patch as needed DVT prophylaxis. Lovenox subcu Full code Patient's - Ms. Maximilian Marinelli , contact #[phone]. Admission and Anticipated Discharge Date Admission Date: October 14, 2021 Subjective Patient seen in follow-up of kidney stone, obstructive uropathy Yesterday patient underwent cystoscopy, and right ureteral stent placement Tolerated procedure well Currently laying in bed, in no acute distress Reports feeling much better He is voiding without much difficulty, some mild hematuria Denies fevers, chills, nausea/ vomiting, significant abdominal pain No chest pain or shortness of breath Review of Systems Review of Systems: All systems reviewed & are unremarkable except as noted in Subjective Physical Exam Physical Exam: GENERAL: Comfortable, looks older than stated age, in NAD HEENT: NC/AT, poor dentition NECK : Supple, no tenderness CHEST : CTAB HEART : RRR, no obvious murmurs ABDOMEN: Soft, nontender to alp., + BS, + R CVA tenderness EXTREMITIES : No LE swelling/tenderness, moves extremities SKIN: Normal color, warm NEUROLOGIC : Alert oriented, answering questions appropriately,no facial asymmetry, speech fluent, moves extremities Results & Data Results & Data ([facility]) Vital Signs (Past 12 Hours) Vital Signs Temp Pulse Resp BP Pulse Ox 10/15/21 07:35 36.5 C 94 H 17 121/83 93 10/15/21 03:29 36.7 C 78 16 115/74 96 10/14/21 22:40 36.4 C L 92 H 18 142/67 H 94 Laboratory Results 10/15/21 10/15/21 Range/Units 09:03 09:03 WBC 6.81 (4.8-10.8) K/uL RBC 5.11 (4.7-6.1) M/uL Hgb 15.4 (14.0-18.0) g/dL Hct 45.0 (42-52) % MCV 88.1 (80-100) fL MCH 30.1 (25-34) pg MCHC 34.2 (32-36) g/dL RDW Std Deviation 41.3 (36.4-46.3) fL RDW Coeff of Sarahi 12.8 (11.5-14.5) % Plt Count 268 (130-400) K/uL MPV 9.3 (7.4-10.4) fL Sodium 139 (136-145) mmol/L Potassium 4.2 (3.5-5.1) mmol/L Chloride 106 (98-107) mmol/L Carbon Dioxide 28 (21-32) mmol/L Anion Gap 5 (3-11) BUN 9 (6-23) mg/dl Creatinine 0.80 (0.6-1.4) mg/dl Est Cr Clr Drug Dosing 114.5 ml/min Est GFR ( Amer) 116.6 ml/min Est GFR (Non-Af Amer) 100.6 ml/min BUN/Creatinine Ratio 11.3 (10-20) Glucose 140 H (70-99(Fasting)) mg/dl Calcium 8.9 (8.5-10.1) mg/dl Phosphorus 2.1 L (2.5-4.9) mg/dl Magnesium 2.1 (1.7-2.4) mg/dl Medications Administered Current Inpatient Medications Acetaminophen (Acetaminophen 325 Mg Tab) 650 mg PO Q4H PRN PRN Reason: pain/fever Stop: 11/13/21 01:19 Last Admin: 10/14/21 18:02 Dose: 650 mg Documented by: Diatrizoate Meglumine (Diatrizoate Meglumine 30% 100ml Vial) 15 ml INSTIL UD PRN PRN Reason: Intraoperatively Stop: 10/18/21 11:05 Last Admin: 10/14/21 11:09 Dose: 15 ml Documented by: Enoxaparin Sodium (Enoxaparin Inj 40 Mg/0.4 Ml Syr) 40 mg SQ QAM RUSTAM Stop: 11/13/21 08:59 Last Admin: 10/15/21 07:45 Dose: 40 mg Documented by: Promethazine HCl 12.5 mg/ (Sodium Chloride) 50.5 mls @ 202 mls/hr IV Q6H PRN PRN Reason: Nausea And Vomiting Stop: 11/13/21 01:16 Lorazepam (Lorazepam 2 Mg/1 Ml Vial) 0.5 mg IV Q4H PRN PRN Reason: Anxiety Stop: 11/13/21 01:16 Morphine Sulfate (Morphine Sulfate 4 Mg/Ml 1 Ml Carp\Vial) 4 mg IV Q4H PRN PRN Reason: Pain Stop: 10/28/21 01:16 Oxycodone HCl (Oxycodone Hcl Ir 5 Mg Tab (Immediate Release)) 5 - 10 mg PO QID PRN PRN Reason: Pain Stop: 10/28/21 01:16 Last Admin: 10/15/21 06:34 Dose: 10 mg Documented by: Polyethylene Glycol (Polyethylene (Miralax) 17 Gm Pack) 17 gm PO DAILY PRN PRN Reason: Constipation Stop: 11/13/21 01:20 Last Admin: 10/14/21 14:18 Dose: 17 gm Documented by: Senna/Docusate Sodium (Docusate Sodium/Senna 50/8.6mg Tab) 1 tab PO [facility] Stop: 11/13/21 01:24 Last Admin: 10/15/21 07:45 Dose: 1 tab Documented by:
[2021-10-15 09:34] LABS: Hemoglobin 15.4 g/dL (14.0-18.0); Mean Corpuscular Hemoglobin 30.1 pg (25-34); Mean Corpuscular Hgb Conc 34.2 g/dL (32-36); Mean Corpuscular Volume 88.1 fL (80-100); Mean Platelet Volume 9.3 fL (7.4-10.4); Platelet Count 268 K/uL (130-400); RDW Coefficient of Variation 12.8 % (11.5-14.5); RDW Standard Deviation 41.3 fL (36.4-46.3); Red Blood Count 5.11 M/uL (4.7-6.1); White Blood Count 6.81 K/uL (4.8-10.8)
[2021-10-15 09:46] LABS: BUN Creatinine Ratio 11.3 (10-20); Calcium 8.9 mg/dl (8.5-10.1); Creatinine Clr Calc Pharmacy 114.5 ml/min; Est GFR (African American) 116.6 ml/min; Est GFR (Non-African American) 100.6 ml/min; Magnesium 2.1 mg/dl (1.7-2.4); Phosphorus 2.1 mg/dl (2.5-4.9); Potassium 4.2 mmol/L (3.5-5.1)
--- NOTE | 2021-10-15 10:59 | Discharge Summary ---
Date of Service October 15, 2021 Admission HPI Per Admitting Provider History obtained from patient, family, and records. Medical history significant for urolithiasis, chronic back pain, BPH, ongoing tobacco abuse. Last confinement July 2015 for renal colic secondary to 7 mm distal ureteral kidney stone. Patient underwent outpatient ESWL. 1 day history of achy lower abdominal pain with nausea, constipation symptoms. Symptoms somewhat different from kidney stone attack. No hematuria, no fever, no chills, no chest pain, no SOB. Patient brought by to the ER for evaluation. 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 Admission Exam Per Admitting Provider GENERAL: Comfortable, looks older than stated age, no respiratory distress SKIN: Normal color, warm HEENT: Hortense palpebral conjunctivae, no ptosis, dry buccal mucosa NECK : Supple, no tenderness CHEST : Decreased breath sounds, no tenderness HEART : RRR, no obvious murmurs ABDOMEN: Some distention, nontender EXTREMITIES : No LE swelling/tenderness, no other conspicuous deformities noted NEUROLOGIC : Coherent, no facial asymmetry, no other gross focality Principal Diagnosis Renal stone, obstructive uropathy Discharge Exam GENERAL: Comfortable, looks older than stated age, in NAD HEENT: NC/AT, poor dentition NECK : Supple, no tenderness CHEST : CTAB HEART : RRR, no obvious murmurs ABDOMEN: Soft, nontender to alp., + BS, + R CVA tenderness EXTREMITIES : No LE swelling/tenderness, moves extremities SKIN: Normal color, warm NEUROLOGIC : Alert oriented, answering questions appropriately,no facial asymmetry, speech fluent, moves extremities Discharge Data Allergies Allergy/AdvReac Type Severity Reaction Status Date / Time No Known Allergies Allergy Verified 10/14/21 10:11 Consultations 10/14/21 00:54 ED Decision to Admit Stat 10/14/21 02:06 Consult Urology Routine Procedures Performed Operation Date: 10/14/21 08:20 Actual Procedures p Cystoscopy, Right Retrograde Pyelogram, Right Ureteral Stent Insertion(Right) - Collin Dominguez MD Ordered Studies 10/13/21 22:12 CT abd pelvis IV con only Urgent IMPRESSION: 1. Moderate to severe right-sided hydronephrosis secondary to an obstructing 14 x 12 mm stone at the right ureteropelvic junction. 2. Right-sided nephrolithiasis. 3. Bladder wall thickening. 4. No bowel wall thickening or obstruction. 10/14/21 10:00 FL retrograde includes kub Routine Hospital Course (1) Obstructive uropathy: Secondary to recurrent kidney stone CT abd/ pelvis 1. Moderate to severe right-sided hydronephrosis secondary to an obstructing 14 x 12 mm stone at the right ureteropelvic junction. 2. Right-sided nephrolithiasis. 3. Bladder wall thickening. 4. No bowel wall thickening or obstruction. GMF Analgesia, IVF Strain urine Urology consult Re: Renal colic/obstructive uropathy N.p.o. until patient seen by urology in anticipation of procedure. Now s/p cystoscopy, right ureteral stent placement (10/14) Patient tolerated procedure well Pt is afebrile, hemodynamically stable, white count and creatinine normal UA on admission not indicative of infection Plan to discharge on tamsulosin, as needed Pyridium, and as needed pain meds for stent management Patient to follow-up with urology as outpatient Situational hypertension chronic back pain, at baseline BPH as per records Hyperglycemia rule out DM Check hemoglobin A1c - current A1c 5.5% Ongoing tobacco abuse Nicotine patch as needed Patient interested in quitting smoking Counseled, recommend calling 1 [phone] quit now Rx for nicotine patch sent to patient's pharmacy Patient's - Ms. Maximilian Marinelli , contact #[phone]. Total Time Total Time Spent Total Time Spent (In Minutes): 35 Discharge Plan Discharge Items Patient Disposition: Home - Self-Care Reason For Visit: OBS UROPATHY Discharge Diagnosis: Renal stone, obstructive uropathy Condition on Discharge: Good Activity: Per Instructions section Non-emergency contact: Primary Care Provider and Urologist Call non-emergency contact if: you have any medication questions and your symptoms worsen Follow-up/Referrals: Yulissa Collado DO [Outside Practitioners] - (Date & Time 10/21/2021 11:00 AM Provider Yulissa Collado DO [facility] ) Collin Dominguez MD [Physician] - Diet: Regular Addtl Attending Provider Instructions: Follow-up with your primary care doctor, the appointment was schedule for you for October 22, 2019. Take tamsulosin/Flomax daily as prescribed. For pain, take Pyridium as needed, Tylenol 1000 mg up to 3 times a day, and for more severe pain, take oxycodone as prescribed. Read instructions from your urologist below. Consider calling [employer], the free smoking cessation line. Prescription for nicotine patch was also sent to your pharmacy. Addtl Product Development Intern Provider Instructions: Please call the urology office at [phone] with any questions, concerns or need to reschedule appointments for any reason. We are happy to assist you. While you have a ureteral stent in place: Some discomfort is normal. Certain movements may trigger pain or a feeling that you need to urinate. You may also feel mild soreness or pressure before or during urination. Your urine may be slightly pink or red. This is due to bleeding caused by minor irritation from the stent. This may happen on and off while you have the stent, it is not harmful and is to be expected. Medication to help minimize discomfort or bladder spasms, or to prevent infection may be prescribed. Take this as directed. Drink plenty of fluids to help flush out your urinary tract. When to call [facility] at [phone]: Your urine contains heavy blood clots or you have difficulty with urination. Fever of 101F or higher, chills, nausea, or vomiting. Your pain is not relieved with medication. The end of the stent comes out of your urethra. Pending Studies at Discharge: No Stand-Alone Forms: My [facility], Smoking Cessation Medications and DC Order Prescriptions: New tamsulosin 0.4 mg capsule 0.4 mg PO DAILY Qty: 30 RF: 0 phenazopyridine [Pyridium] 100 mg tablet 100 mg PO Q8H PRN (Reason: pain) Qty: 14 RF: 0 oxycodone 5 mg Tablet 5 mg PO QID PRN (Reason: pain) Qty: 7 RF: 0 nicotine 21 mg/24 hr patch 24 hour 1 patch transdermal DAILY Qty: 7 RF: 0 Continued acetaminophen [Tylenol Extra Strength] 500 mg Tablet 500 mg PO DIRECTED PRN (Reason: Pain) RF: 0 ibuprofen 200 mg Tablet 600 - 800 mg PO DIRECTED PRN (Reason: Pain) RF: 0 Discharge Orders: Discharge Order (Routine); Ordered 10/15/21 Ordered By: Kuldip Mena Admission Data Admit Date/Time: 10/14/21 01:17 Attending Provider: Kuldip Mena Admit Provider: Cruz Howard Primary Care Provider: PCP,NO Other Providers: Cruz Howard ; Artie Villela ; Kush Martinez ; Dennis Lagunas ; Carolyn Hernandez ; Boni Padgett ; Ivania Weston ; Ksenia Kurtz ; Felicia Newton ; Lul Lira ; Jeevan Marcelino ; Jeri Zarate ; Terri Newton ; Collin Dominguez
== END 2021-10-15 12:58 | disposition home or self-care (01) | DRG 661 ==
LOC: ED 22:03 → SUATTDRO 10-14 01:17 → 3W 10-14 01:17